=== PATIENT | female | born 1935 | race Caucasian/White ===

== ENCOUNTER 2016-09-02 07:04 | Day surgery (SDC) | payer MEDICARE, OTHER ==
[~2016-09-02 07:04] MED LIST: ACETAMINOPHEN 325 MG TABLET PO PRN; ACETYLCHOLINE CHLORIDE 20 DROP KIT IO PRN; BUPIVACAINE HCL/PF 30 ML VIAL IJ PRN; CYCLOPENTOLATE HCL 20 DROP BTL RIGHTEYE PRN; DEXTROSE 5%-0.5 NORMAL SALINE 1,000 ML IV PRN; EPINEPHrine 1 MG/ML AMPUL IO PRN; HYALURONATE SODIUM 0.4 ML DISP.SYRIN IO PRN; HYALURONATE SODIUM 0.85 ML DISP.SYRIN IO PRN; LIDOCAINE HCL/PF 200 MG/5 ML AMPUL TP PRN; LIDOCAINE HCL/PF 5 ML VIAL IO PRN; NORMAL SALINE 3 ML BOX IV PRN; TETRACAINE HCL 150 DROP BTL OP PRN
[2016-09-02] MEDS: PHENYLEPHRINE HCL 50 DROP BTL RIGHTEYE PRN ×3 (07:20→07:45)
[2016-09-02] MEDS: TROPICAMIDE 150 DROP BTL RIGHTEYE PRN ×3 (07:20→07:45)
[2016-09-02] MEDS ORDERED: DEXTROSE 5%-0.5 NORMAL SALINE 1,000 ML IV ONE (07:45)
[2016-09-02 10:09] VITALS: BP 147/70
== END 2016-09-02 07:05 | disposition home or self-care (01) ==
LOC: AMB 07:04
PROVIDERS: ATTEND Ophthalmology
PROC: 08RJ3JZ Replacement of Right Lens with Synthetic Substitute, Percutaneous Approach (ICD-10-PCS; principal; 2016-09-02 08:00)
DX: H26.9 Unspecified cataract (principal); I10 Essential (primary) hypertension; F03.90 Unspecified dementia, unspecified severity, without behavioral disturbance, psychotic disturbance, mood disturbance, and anxiety; G20 Parkinson's disease; D50.8 Other iron deficiency anemias; Z68.24 Body mass index [BMI] 24.0-24.9, adult; Z87.891 Personal history of nicotine dependence

== ENCOUNTER 2016-09-16 10:37 | Day surgery (SDC) | payer MEDICARE, OTHER ==
[~2016-09-16 10:37] MED LIST changes: +CYCLOPENTOLATE HCL 20 DROP BTL LEFTEYE PRN; -CYCLOPENTOLATE HCL 20 DROP BTL RIGHTEYE PRN
[2016-09-16] MEDS: PHENYLEPHRINE HCL 50 DROP BTL LEFTEYE PRN ×3 (10:50→11:10)
[2016-09-16] MEDS: TROPICAMIDE 150 DROP BTL LEFTEYE PRN ×3 (10:50→11:10)
[2016-09-16] MEDS ORDERED: DEXTROSE 5%-0.5 NORMAL SALINE 1,000 ML IV ONE (11:10)
[2016-09-16 13:03] VITALS: BP 127/61
== END 2016-09-16 10:38 | disposition home or self-care (01) ==
LOC: AMB 10:37
PROVIDERS: ATTEND Ophthalmology
PROC: 08RK3JZ Replacement of Left Lens with Synthetic Substitute, Percutaneous Approach (ICD-10-PCS; principal; 2016-09-16 11:20)
DX: H26.9 Unspecified cataract (principal); I10 Essential (primary) hypertension; D50.9 Iron deficiency anemia, unspecified; G20 Parkinson's disease; F02.80 Dementia in other diseases classified elsewhere, unspecified severity, without behavioral disturbance, psychotic disturbance, mood disturbance, and anxiety; Z87.891 Personal history of nicotine dependence; Z68.24 Body mass index [BMI] 24.0-24.9, adult

== ENCOUNTER 2018-03-07 08:55 | Inpatient (IN) ==
--- NOTE | 2018-03-07 09:11 | ERNOTE ---
Lower Extremity HPI - Narrative Date of Service: 03/07/18 - General Lower Extremities Pain: hip: right Time Seen by Provider: 03/07/18 08:55 Source: patient, EMS Exam Limitations: no limitations - Immun/Allergies/Home Medications Immunizations: IMMUNIZATION HX Immunizations Up to Date Yes History of Influenza Vaccine Yes Hx Pneumococcal Vaccination Yes Allergies/Adverse Reactions: Allergies Allergy/AdvReac Type Severity Reaction Status Date / Time No Known Allergies Allergy Verified 09/16/16 10:54 Home Medications: HOME MEDICATIONS Carbidopa/Levodopa 25/100 [Sinemet 25/100] 1 tab PO TID 01/24/15 [Last Taken 04/10] Clopidogrel Bisulfate [Plavix] 75 mg PO DAILY 01/24/15 [Last Taken 09/01/16] Levothyroxine Sodium [Synthroid] 100 mcg PO DAILY 01/24/15 [Last Taken 09/01/16] Ranolazine [Ranexa] 500 mg PO BID 01/24/15 [Last Taken 09/01/16] Atenolol [Tenormin] 25 mg PO DAILY 01/25/15 [Last Taken 09/01/16] Cyanocobalamin [Vitamin B-12] 1,000 mcg PO DAILY 01/25/15 [Last Taken 09/01/16] Ferrous Sulfate 325 mg PO TID #90 tablet 01/25/15 [Last Taken 09/01/16] Aspirin [Aspirin Enteric Coated] 81 mg PO DAILY 08/28/16 [Last Taken 09/01/16] Calcium Carbonate/Vitamin D3 [Calcium 600 + Vit D 200 Tablet] 1 each PO DAILY [Last Taken 09/01/16] Cholecalciferol [Vitamin D] 1,000 unit PO DAILY 08/28/16 [Last Taken 09/01/16] Haloperidol [Haldol] 1 mg PO DAILY 08/28/16 [Last Taken 09/01/16] Lisinopril [Zestril] 10 mg PO DAILY 08/28/16 [Last Taken 09/02/16 07:00] Simvastatin [Zocor] 20 mg PO HS 08/28/16 [Last Taken 09/01/16] Acetaminophen 650 mg PO Q6H PRN 03/07/18 [Last Taken Unknown] Meclizine HCl [Antivert] 25 mg PO QID PRN 03/07/18 [Last Taken Unknown] metFORMIN HCL [Metformin HCl] 500 mg PO BIDWM 03/07/18 [Last Taken Unknown] - History of Present Illness Narrative: This patient is an 82-year-old female who is from one of the local nursing homes. She got up to rearrange sheets or blankets and fell backwards, landing on her back. She has right hip pain. She was noted to have rotation and shortening. She denies any other injuries. She denies hitting her head. Date (Duration): 03/07/18 Time (Timing): 08:30 Occurred: just prior to arrival Location of Incident: home Method of Injury: Reports: fell Reason for Fall: Reports: lost balance Loss of Consciousness: Reports: no loss of consciousness Modifying Factors - (Improves): Reports: rest Associated Symptoms: Denies: dizzy/light headedness Other Injuries: Reports: none Subsequent Symptoms: Denies: sensory loss, numbness, motor loss Prior Treament: Denies: other Additional Comments: Her pain is better at this time and she does not want anything for pain. Review of Systems - Review of Systems Constitutional: Present: no symptoms reported EYE: Present: no symptoms reported ENT: Present: no symptoms reported Respiratory: Present: no symptoms reported. Absent: shortness of breath, cough Cardiology: Present: no symptoms reported. Absent: chest pain, syncope Gastrointestinal/Abdominal: Present: no symptoms reported, other - she has frequent bowel movements per the person in the room with her Genitourinary: Present: no symptoms reported Musculoskeletal: Present: See HPI. Absent: back pain, neck pain Skin: Present: no symptoms reported Neurological: Present: tremors - chronic tremor from Parkinson's disease. Absent: headache, dizziness/light-headedness, seizure, numbness, tingling Endocrine: Present: other - she has diabetes and is on oral medication. She took her medication this morning. Hematologic/Lymphatic: Present: no symptoms reported Psych: Present: no symptoms reported All Other Systems: All systems neg except as marked Medical History (Last Reviewed 03/07/18 @ 09:09 by Andriy Tellez MD) Anemia Arthropathy Dementia Diabetes mellitus type 2 in nonobese HTN (hypertension) Hyperlipidemia Hypothyroidism Parkinson disease Social History: Preferred Language Yemeni Do you have any methodist or No cultural preference? Smoking Status Former smoker Abuse History No History of abuse Psych History No pertinent hx Alcohol Use none Drug Use none Currently lives in a retirement Physical Exam - Physical Exam General Appearance: Present: wd/wn, alert, no apparent distress Head Exam: Present: normal inspection, no evidence of injury, no tenderness w palpation Eye Exam: Normal inspection: bilateral Ears, Nose, Throat: Present: normal ENT inspection Neck: Present: normal inspection, nontender, supple Respiratory: Present: no respiratory distress, normal breath sounds, chest nontender, lungs clear Cardiovascular/Chest: Present: regular rate, rhythm, no murmur Gastrointestinal/Abdominal: Present: normal bowel sounds, nontender, nondistended, soft, no organomegaly Extremity Exam: Present: other - the right leg is shortened and externally rotated. She has tenderness about the right hip. Neurological Exam: Present: alert, oriented, normal mood/affect, no motor/ sensory deficits Skin Exam: Present: normal color, warm/dry Lymphatic Exam: Present: no adenopathy ED Progress - Results and Orders Patient's Lab Results:: I have reviewed the patient's lab results. - Vital Signs Patient's Vital Signs:: I have reviewed the patient's vital signs. Vital Signs: Vital Signs 03/07/18 08:56 03/07/18 09:05 Temperature 36.3 C 36.3 C Pulse Rate 85 85 Respiratory Rate 18 18 Blood Pressure 185/89 H 185/89 H O2 Sat by Pulse Oximetry 100 100 - X-Ray X-Ray #1 X-Ray: hip - right femoral neck fracture Interpretation: Interp. by me X-Ray #2 X-Ray: chest - no acute process Interpretation: Interp. by me - Progress/Reassessment Chief Complaint: Hip Pain/Injury Plan - Plan Plan: I spoke with the orthopedist on-call. He came to the emergency department to evaluate the patient. I spoke with Dr. Gan. He is in the hospital and will see the patient when she is on the floor. Departure Clinical Impression: Fracture of right hip Qualifiers: Encounter type: initial encounter Fracture type: closed Qualified Code(s): S72.001A - Fracture of unspecified part of neck of right femur, initial encounter for closed fracture - Departure Disposition: Still a patient Condition: Stable Referrals: Aj Vann DO [Primary Care Provider] -
[2018-03-07 09:31] LABS: Hematocrit 40.4 % (37.0-47.0); Hemoglobin 13.1 gm/dL (12.5-16.0); Mean Cell Volume 93.5 fl (78-100); Mean Corpuscular Hemoglobin 30.3 pg (27-31); Mean Corpuscular Hgb Conc 32.4 g/dl (32-36); Mean Platelet Volume 10.4 fl (8-12.5); Neutrophil # 5.9 K/mm3 (1.3-6.0); Neutrophil % 72.2 % (42-75.0); Platelet Count 259 K/mm3 (150-450); Red Blood Count 4.32 M/mm3 (4.2-5.4); Red Cell Distribution Width 12.7 % (11.5-14.0); White Blood Count 8.2 K/mm3 (4.0-10.5)
[2018-03-07 09:43] LABS: Albumin * 3.5 gm/dl (3.4-5.0); Anion Gap 14.4 mmol/L (6.8-13.8); BUN/Creatinine Ratio 16.7 (9.0-21.6); Bilirubin, Total 0.3 mg/dL (0.0-1.1); Ca. Corrected For Albumin 9.2 mg/dL (8.4-10.2); Calcium * 9.1 mg/dL (7.9-10.9); Potassium 4.4 mmol/L (3.4-4.6); Total Protein 6.9 gm/dL (6.2-8.2)
--- NOTE | 2018-03-07 10:17 | CONS ---
HPI - General Date of Service: 03/07/18 Narrative: Mrs. Bronson was seen in the emergency department for concern of right subcapital hip fracture. Patient is a halfway patient fell today presenting emergency department was evaluated by emergency department staff found to have a displaced right subcapital hip fracture. Patient reports no other complaints besides right inguinal pain. In overall states she's been feeling good health prior to this fall. She's been admitted by medical for evaluation and for clearance for pending surgery. - History of Present Illness Allergies/Adverse Reactions: Allergies No Known Allergies Allergy (Verified 09/16/16 10:54) Home Medications: Home Medications Medication Instructions Recorded Last Taken Carbidopa/Levodopa 25/100 [Sinemet 1 tab PO TID 01/24/15 09/01/16 25/100] Clopidogrel Bisulfate [Plavix] 75 mg PO DAILY 01/24/15 09/01/16 Levothyroxine Sodium [Synthroid] 100 mcg PO DAILY 01/24/15 09/01/16 Ranolazine [Ranexa] 500 mg PO BID 01/24/15 09/01/16 Atenolol [Tenormin] 25 mg PO DAILY 01/25/15 09/01/16 Cyanocobalamin [Vitamin B-12] 1,000 mcg PO DAILY 01/25/15 09/01/16 Ferrous Sulfate 325 mg PO TID #90 tablet 01/25/15 09/01/16 Aspirin [Aspirin Enteric Coated] 81 mg PO DAILY 08/28/16 09/01/16 Calcium Carbonate/Vitamin D3 1 each PO DAILY 08/28/16 09/01/16 [Calcium 600 + Vit D 200 Tablet] Cholecalciferol [Vitamin D] 1,000 unit PO DAILY 08/28/16 09/01/16 Haloperidol [Haldol] 1 mg PO DAILY 08/28/16 09/01/16 Lisinopril [Zestril] 10 mg PO DAILY 08/28/16 09/02/16 07:00 Simvastatin [Zocor] 20 mg PO HS 08/28/16 09/01/16 Acetaminophen 650 mg PO Q6H PRN 03/07/18 Unknown Meclizine HCl [Antivert] 25 mg PO QID PRN 03/07/18 Unknown metFORMIN HCL [Metformin HCl] 500 mg PO BIDWM 03/07/18 Unknown Procedures Replacement of Left Lens with Synthetic Substitute, Percutaneous Approach (09/16) Replacement of Right Lens with Synthetic Substitute, Percutaneous Approach (05/11) Physical Examination - Exam Narrative: Mrs. Bronson is currently lying on gurney and accompanied by family. She is alert and oriented. Examination of right lower extremity reveals is externally rotated and shortened. She is local a little pain with palpation. She reports no thigh pain knee pain or right lower extremity pain. She is able to actively plantarflex and dorsiflex both ankles. She reports no pain in the left lower extremity or thigh. She has 1+ dorsalis pedis pulse lower extremity is. X- rays reviewed showed displaced subcapital hip fracture. Vital Signs: Vital Signs - Last Taken Temp 36.3 C 03/07/18 09:05 Pulse 85 03/07/18 09:05 Resp 18 03/07/18 09:05 BP 185/89 H 03/07/18 09:05 Pulse Ox 100 03/07/18 09:05 O2 Oxygen Delivery Method Room Air - Results and Findings: Lab/Microbiology results last 24 hrs: Abnormal/Pending Laboratory Last 24 HRS 03/07/18 03/07/18 09:25 09:25 Immature Gran % (Auto) 0.90 H Immature Gran # (Auto) 0.07 H Lymphocytes % 19.4 L Plasma Sodium 144 H Anion Gap 14.4 H Est GFR (Non-Af Amer) 52 L Random Glucose 195 H ALT 12 L - Assessments/Findings (1) Fracture of right hip Diagnosis(s): Discussed with Ms. Bronson and her family her condition. Discussed the need for hemiarthroplasty. Risks of infection, neurovascular injury, leg length discrepancy, hardware complications, DVT, PE, stroke, MA and were discussed. We'll obtain consents. Pending medical evaluation and clearance plan to proceed with this in the a.m. March 08. She will have Ancef IV preop. We'll obtain labs EKG chest x-ray and UA at this time. Problem: Acute (2) Hypertension Problem: Chronic (3) Diabetes 1.5, managed as type 2 Problem: Chronic (4) Parkinson disease Problem: Chronic
[2018-03-07 10:29] LABS: Prothrombin Time (Patient) 9.9 Seconds (9.0-11.0)
[2018-03-07 10:33] LABS: INR 0.99 INR (0.90-1.10)
[2018-03-07] MEDS ORDERED: ONDANSETRON HCL/PF 2 MG/ML VIAL IV ONE (10:38)
[2018-03-07] MEDS ORDERED: MORPHINE SULFATE 4 MG/ML SYRG IV ONE (10:38)
[2018-03-07] MEDS ORDERED: ONDANSETRON HCL/PF 2 MG/ML VIAL ONE (10:39)
[2018-03-07] MEDS ORDERED: MORPHINE SULFATE 4 MG/ML SYRG ONE (10:39)
[2018-03-07 10:42] LABS: Urine Appearance Clear (CLEAR); Urine Bilirubin Negative (NEGATIVE); Urine Blood Negative /ul (NEGATIVE); Urine Color Yellow; Urine Ketone Negative (NEGATIVE)
[2018-03-07 10:43] LABS: Urine Bacteria None Seen; Urine Nitrite Negative (NEGATIVE); Urine Protein Negative (NEGATIVE); Urine RBC None Seen /hpf (0-5); Urine Urobilinogen Normal (NORMAL); Urine WBC None Seen /hpf (0-5)
[2018-03-07] MEDS ORDERED: ACETAMINOPHEN 325 MG TABLET PO PRN (12:50)
--- NOTE | 2018-03-07 13:27 | HP ---
Chief Complaint - Chief Complaint Date of Service: 03/07/18 Time of Service: 13:06 Chief Complaint: Right Hip pain after a fall. History of Present Illness: 82 yo WF, resident of the [facility], who ambulates independently, was by her bed adjusting her sheet so she could take a nap and then next thing she knew she had fallen backwards and had severe, sharp right hip pain. She denies LOC, CP, dizziness prior or after this, but does have hx of significant CAD and anemia in the past. She also has DM2, but is not on insulin and states she didn't feel weak like her sugars were low. In the ER she was found with a displaced right subcapital hip fracture and was in need of surgery. She received 4mg IV morphine in the ER to control her pain around 1039 this am and states her pain is still well controlled. She has no other complaints. Her daughter is with her and adds to the hx, but patient it a reasonably good historian. Pertinant issues: 1. 2 vessel CAD with 80% blockage, but cannot be stented so is on plavix and ASA and Ranexa for this, is a bleeding risk from surgery and meds which could effect her heart if too dramatic of a drop in Hb. 2. Parkinson - cause bad EKG production so will need to repeat this. 3. DM2 - will need to watch and control sugars 4. HTN - BP's initially high, most likely due to pain, BP's better now 5. Anemia - appears stable. will check iron levels to be sure also not too high. Pt. will be admitted for pain control and unless concerns on EKG should be able to go to surgery in the am. Medical History (Last Reviewed 03/07/18 @ 15:00 by Eric Angulo CRNA) Anemia Arthropathy Dementia Diabetes mellitus type 2 in nonobese HTN (hypertension) Hyperlipidemia Hypothyroidism Parkinson disease Social History: Patient Lives/Resources [facility] Utilized Occupation Retired Preferred Language Romansh Do you have any restorationism or Yes: Adventism cultural preference? Smoking Status Former smoker Have you smoked in the past 12 No months Do you dip or chew tobacco No Abuse History No History of abuse Psych History No pertinent hx Alcohol Use none Drug Use none Review Of Systems (GEN) - Review of Systems Generalized/Overall Review: Present: No Symptoms Reported EENTM: Present: No Symptoms Reported Respiratory: Present: No Symptoms Reported Cardiac: Present: Chest Pain - always at rest and lying down, never with activity. Abdominal: Present: No Symptoms Reported Genitourinary: Present: No Symptoms Reported Musculoskeletal: Present: Joint Pain Neurological: Present: Tremors Skin: Present: No Symptoms Reported Endocrine: Present: No Symptoms Reported Immunizations: IMMUNIZATION HX Immunizations Up to Date Yes History of Influenza Vaccine Yes Hx Pneumococcal Vaccination Yes Allergies/Adverse Reactions: Allergies Allergy/AdvReac Type Severity Reaction Status Date / Time No Known Allergies Allergy Verified 09/16/16 10:54 Home Medications: HOME MEDICATIONS Carbidopa/Levodopa 25/100 [Sinemet 25/100] 1 tab PO TID 01/24/15 [Last Taken 04/10] Clopidogrel Bisulfate [Plavix] 75 mg PO DAILY 01/24/15 [Last Taken 09/01/16] Levothyroxine Sodium [Synthroid] 100 mcg PO DAILY 01/24/15 [Last Taken 09/01/16] Ranolazine [Ranexa] 500 mg PO BID 01/24/15 [Last Taken 09/01/16] Atenolol [Tenormin] 25 mg PO DAILY 01/25/15 [Last Taken 09/01/16] Cyanocobalamin [Vitamin B-12] 1,000 mcg PO DAILY 01/25/15 [Last Taken 09/01/16] Ferrous Sulfate 325 mg PO TID #90 tablet 01/25/15 [Last Taken 09/01/16] Aspirin [Aspirin Enteric Coated] 81 mg PO DAILY 08/28/16 [Last Taken 09/01/16] Calcium Carbonate/Vitamin D3 [Calcium 600 + Vit D 200 Tablet] 1 each PO DAILY [Last Taken 09/01/16] Cholecalciferol [Vitamin D] 1,000 unit PO DAILY 08/28/16 [Last Taken 09/01/16] Haloperidol [Haldol] 1 mg PO DAILY 08/28/16 [Last Taken 09/01/16] Lisinopril [Zestril] 10 mg PO DAILY 08/28/16 [Last Taken 09/02/16 07:00] Simvastatin [Zocor] 20 mg PO HS 08/28/16 [Last Taken 09/01/16] Acetaminophen 650 mg PO Q6H PRN 03/07/18 [Last Taken Unknown] Meclizine HCl [Antivert] 25 mg PO QID PRN 03/07/18 [Last Taken Unknown] metFORMIN HCL [Metformin HCl] 500 mg PO BIDWM 03/07/18 [Last Taken Unknown] Exam - Exam Vital Signs: Vital Signs - Last Taken Temp 37.0 C 03/07/18 12:05 Pulse 77 03/07/18 12:05 Resp 18 03/07/18 12:05 BP 137/61 03/07/18 12:05 Pulse Ox 92 L 03/07/18 12:05 Constitutional: Present: Alert, Oriented x3, Cooperative, Well developed, Mild distress, Looks Younger than stated age ENT Exam: Present: hearing grossly normal Eye Exam: bilateral eye: normal inspection, PERRL, EOMI Neck: Present: supple Respiratory: Present: lungs clear, normal breath sounds, no respiratory distress , no accessory muscle use Cardiovascular/Chest: Present: regular rate, rhythm, no murmur Peripheral Pulses: dorsalis-pedis (R): 2+, dorsalis-pedis (L): 2+ Abdomen: Present: Normal bowel sounds, soft, nondistended, no rebound tenderness , no hepatospenomegaly, tender - PAT region Extremity: Present: no calf tenderness, leg pain - tender over right hip with mild palpation, other - significant RUE tremors, especially when she gets excited. Skin Exam: Present: normal color Neurologic: Present: normal mood/affect, oriented x 3 Appearance: Present: appropriate appearance, appropriate insight, neat, no memory impairment Eye contact: Present: cooperative, good eye contact, normal speech Thoughts: Present: normal thought pattern, no apparent hallucination Diagnostic Studies: Abnormal Lab Results 03/07/18 03/07/18 Range/Units 09:25 09:25 Immature Gran % (Auto) 0.90 H (0.001-0.429) % Immature Gran # (Auto) 0.07 H (0.000-0.0310) K/mm3 Lymphocytes % 19.4 L (20-51) % Plasma Sodium 144 H (130-142) mmol/L Anion Gap 14.4 H (6.8-13.8) mmol/L Est GFR (Non-Af Amer) 52 L (60-130) mL/min Random Glucose 195 H (70-110) mg/dL ALT 12 L (19-67) U/L Laboratory Results WBC 8.2 K/mm3 (4.0-10.5) 03/07/18 09:25 RBC 4.32 M/mm3 (4.2-5.4) 03/07/18 09:25 Hgb 13.1 gm/dL (12.5-16.0) 03/07/18 09:25 Hct 40.4 % (37.0-47.0) 03/07/18 09:25 MCV 93.5 fl (78-100) 03/07/18 09:25 MCH 30.3 pg (27-31) 03/07/18 09:25 MCHC 32.4 g/dl (32-36) 03/07/18 09:25 RDW 12.7 % (11.5-14.0) 03/07/18 09:25 Plt Count 259 K/mm3 (150-450) 03/07/18 09:25 MPV 10.4 fl (8-12.5) 03/07/18 09:25 Immature Gran % (Auto) 0.90 % (0.001-0.429) H 03/07/18 09:25 Immature Gran # (Auto) 0.07 K/mm3 (0.000-0.0310) H 03/07/18 09:25 Neutrophils % 72.2 % (42-75.0) 03/07/18 09:25 Lymphocytes % 19.4 % (20-51) L 03/07/18 09:25 Monocytes % 6.1 % (0.0-9) 03/07/18 09:25 Eosinophils % 1.0 % (0.0-3.0) 03/07/18 09:25 Basophils % 0.4 % (0.0-1.0) 03/07/18 09:25 Nucleated RBC % 0.0 k/mm3 (0-1) 03/07/18 09:25 Neutrophils # 5.9 K/mm3 (1.3-6.0) 03/07/18 09:25 Lymphocytes # 1.58 k/mm3 (1.5-3.5) 03/07/18 09:25 Monocytes # 0.5 k/mm3 (0.0-1.0) 03/07/18 09:25 Eosinophils # 0.1 k/mm3 (0.0-0.7) 03/07/18 09:25 Absolute Basophils 0.0 k/mm3 (0.0-0.1) 03/07/18 09:25 PT 9.9 Seconds (9.0-11.0) 03/07/18 09:25 INR (Anticoag Therapy) 0.99 INR (0.90-1.10) 03/07/18 09:25 Sodium 142 mmol/L (132-142) 03/07/18 09:25 Plasma Sodium 144 mmol/L (130-142) H 03/07/18 09:25 Potassium 4.4 mmol/L (3.4-4.6) 03/07/18 09:25 Chloride 103 mmol/L (97-106) 03/07/18 09:25 Carbon Dioxide 29.0 mmol/L (24-32.6) 03/07/18 09:25 Anion Gap 14.4 mmol/L (6.8-13.8) H 03/07/18 09:25 BUN 18 mg/dL (3-23) 03/07/18 09:25 Creatinine 1.08 mg/dL (0.4-1.4) 03/07/18 09:25 Est GFR (Non-Af Amer) 52 mL/min (60-130) L 03/07/18 09:25 BUN/Creatinine Ratio 16.7 (9.0-21.6) 03/07/18 09:25 Random Glucose 195 mg/dL (70-110) H 03/07/18 09:25 Calcium 9.1 mg/dL (7.9-10.9) 03/07/18 09:25 Calcium Adj for Albumin 9.2 mg/dL (8.4-10.2) 03/07/18 09:25 Total Bilirubin 0.3 mg/dL (0.0-1.1) 03/07/18 09:25 AST 15 U/L (0-48) 03/07/18 09:25 ALT 12 U/L (19-67) L 03/07/18 09:25 Alkaline Phosphatase 54 U/L (50-170) 03/07/18 09:25 Total Protein 6.9 gm/dL (6.2-8.2) 03/07/18 09:25 Albumin 3.5 gm/dl (3.4-5.0) 03/07/18 09:25 Urine Color Yellow 03/07/18 Unknown Urine Appearance Clear (CLEAR) 03/07/18 Unknown Urine pH 6.0 pH (5.0-7.0) 03/07/18 Unknown Ur Specific [place] 1.010 SP.GR. (1.005-1.010) 03/07/18 Unknown Urine Protein Negative mg/dL (NEGATIVE) 03/07/18 Unknown Urine Glucose (UA) Negative mg/dL (NEGATIVE) 03/07/18 Unknown Urine Ketones Negative mg/dL (NEGATIVE) 03/07/18 Unknown Urine Blood Negative /ul (NEGATIVE) 03/07/18 Unknown Urine Nitrate Negative (NEGATIVE) 03/07/18 Unknown Urine Bilirubin Negative mg/dl (NEGATIVE) 03/07/18 Unknown Urine Urobilinogen Normal EU/dl (NORMAL) 03/07/18 Unknown Ur Leukocyte Esterase Negative /ul (NEGATIVE) 03/07/18 Unknown Urine RBC None seen /hpf (0-5) 03/07/18 Unknown Urine WBC None seen /hpf (0-5) 03/07/18 Unknown Ur Epithelial Cells None seen /hpf (0-5) 03/07/18 Unknown Urine Bacteria None seen (NONE) 03/07/18 Unknown Urine Culture Comments No culture indicated 03/07/18 Unknown Assessment/Plan - Assessment/Plan (1) Fracture of right hip Assessment: need for surgery. moderate risk given hx, but feel she is medically optimized and stable for surgery. need to play close attention to BP's and Hb due to CAD. Problem: Acute Qualifiers: Encounter type: initial encounter Fracture type: closed Qualified Code(s) : S72.001A - Fracture of unspecified part of neck of right femur, initial encounter for closed fracture (2) Hypertension Assessment: stable, continue lisinopril Problem: Chronic Qualifiers: Hypertension type: essential hypertension Qualified Code(s): I10 - Essential (primary) hypertension (3) Diabetes 1.5, managed as type 2 Assessment: will hold metformin and do SSI and CC diet while here. Problem: Ruled-out (4) Parkinson disease Assessment: continue meds unchanged. Problem: Chronic (5) CAD (coronary artery disease) Assessment: does report some CP at times, but appears it may be more GI related than CAD. will consider prn SL nitro, but will do some pecid also for her stomach. EKG showed no actue changes that would disqualify her from surgery. Problem: Acute Qualifiers: Coronary Disease-Associated Artery/Lesion type: [place] artery Associated angina: with stable angina (6) Dementia Assessment: appears oriented to person and place, no concerns at this time, but will continue her usual meds. Problem: Chronic Qualifiers: Dementia type: Parkinson's disease (7) Discharge planning issues Assessment: possibly go be discharged back the [facility] in a few days, but will depend on how her blood loss, CAD, sugars go as she has multiple comorbidities that will need to be well controlled prior to discharge. Anticipate her stay being at lest 3-4 days. Problem: Acute
--- NOTE | 2018-03-07 15:01 | ANES ---
Anesthesia Pre Procedure Eval Vitals/Labs: Last Vital Signs Temp 36.4 C 03/07/18 14:46 Pulse 80 03/07/18 14:46 Resp 16 03/07/18 14:46 BP 127/46 03/07/18 14:46 Pulse Ox 96 03/07/18 14:46 HOME MEDICATIONS Carbidopa/Levodopa 25/100 [Sinemet 25/100] 1 tab PO TID 01/24/15 [Last Taken 04/10] Clopidogrel Bisulfate [Plavix] 75 mg PO DAILY 01/24/15 [Last Taken 09/01/16] Levothyroxine Sodium [Synthroid] 100 mcg PO DAILY 01/24/15 [Last Taken 09/01/16] Ranolazine [Ranexa] 500 mg PO BID 01/24/15 [Last Taken 09/01/16] Atenolol [Tenormin] 25 mg PO DAILY 01/25/15 [Last Taken 09/01/16] Cyanocobalamin [Vitamin B-12] 1,000 mcg PO DAILY 01/25/15 [Last Taken 09/01/16] Ferrous Sulfate 325 mg PO TID #90 tablet 01/25/15 [Last Taken 09/01/16] Aspirin [Aspirin Enteric Coated] 81 mg PO DAILY 08/28/16 [Last Taken 09/01/16] Calcium Carbonate/Vitamin D3 [Calcium 600 + Vit D 200 Tablet] 1 each PO DAILY [Last Taken 09/01/16] Cholecalciferol [Vitamin D] 1,000 unit PO DAILY 08/28/16 [Last Taken 09/01/16] Haloperidol [Haldol] 1 mg PO DAILY 08/28/16 [Last Taken 09/01/16] Lisinopril [Zestril] 10 mg PO DAILY 08/28/16 [Last Taken 09/02/16 07:00] Simvastatin [Zocor] 20 mg PO HS 08/28/16 [Last Taken 09/01/16] Acetaminophen 650 mg PO Q6H PRN 03/07/18 [Last Taken Unknown] Meclizine HCl [Antivert] 25 mg PO QID PRN 03/07/18 [Last Taken Unknown] metFORMIN HCL [Metformin HCl] 500 mg PO BIDWM 03/07/18 [Last Taken Unknown] Allergies/Adverse Reactions: Allergies Allergy/AdvReac Type Severity Reaction Status Date / Time No Known Allergies Allergy Verified 09/16/16 10:54 - Planned Procedure Planned Procedure: HIP FIX RIGHT Medication List Reviewed:: Yes Allergies Verified: Yes Medical History (Last Reviewed 03/07/18 @ 15:00 by Eric Angulo CRNA) Anemia Arthropathy Dementia Diabetes mellitus type 2 in nonobese HTN (hypertension) Hyperlipidemia Hypothyroidism Parkinson disease - Family Anesthesia History Family History:: no untoward family reactions to anesthesia - Airway/Neck/Teeth Denture Type: Full- Upper Mallampatti Score: 2 Thyromental (T-M) distance: > 6 cm Mandibulo Hyoid distance: > 3 cm - Respiratory Respiratory: lungs clear Smoking Status: Former smoker Sleep Apnea currently treated: No - Cardiovascular Patient History - Cardiac/Respiratory: Coronary Heart Disease Tolerates Activity: Poor Heart Sounds: S1 & S2, Regular - Anesthesia Assessment and Plan ASA Class: III Anesthesia Type Plan: General ET Planned difficult intubation/equipment available: No
[2018-03-07] MEDS: CARBIDOPA/LEVODOPA 25/100 1 TAB TABLET PO SCH ×2 (15:51→22:22)
[2018-03-07] MEDS: INSULIN LISPRO 100 UNITS/ML VIAL SC SCH ×2 (18:57→22:19)
[2018-03-07] MEDS: FAMOTIDINE 20 MG TABLET PO SCH (22:20)
[2018-03-08] MEDS: MORPHINE SULFATE 2 MG/ML DISP.SYRIN IV PRN (04:49)
[2018-03-08] MEDS: RINGER'S SOLUTION,LACTATED 1,000 ML IV PRN ×5 (05:00→22:03)
[2018-03-08] MEDS ORDERED: ceFAZolin SODIUM 1 GM VIAL IV PRN (06:00)
[2018-03-08] MEDS: INSULIN LISPRO 100 UNITS/ML VIAL SC SCH ×4 (08:10→21:07)
[2018-03-08] MEDS: LEVOTHYROXINE SODIUM 100 MCG TABLET PO SCH (08:11)
[2018-03-08] MEDS: FAMOTIDINE 20 MG TABLET PO SCH ×2 (08:11→21:04)
[2018-03-08] MEDS: HALOPERIDOL 1 MG TABLET PO SCH (08:11)
[2018-03-08] MEDS: CARBIDOPA/LEVODOPA 25/100 1 TAB TABLET PO SCH ×3 (08:11→21:04)
[2018-03-08] MEDS: LISINOPRIL 10 MG TABLET PO SCH (08:12)
[2018-03-08] MEDS: ATENOLOL 25 MG TABLET PO SCH (08:12)
[2018-03-08] MEDS ORDERED: ONDANSETRON HCL/PF 2 MG/ML VIAL IV PRN (09:45)
[2018-03-08] MEDS ORDERED: PROMETHAZINE HCL 5 MG in DEXTROSE 5 % IN WATER 50 ML IV PRN ×2 (09:45)
[2018-03-08] MEDS ORDERED: MORPHINE SULFATE 2 MG/ML DISP.SYRIN IV PRN (09:45)
[2018-03-08] MEDS ORDERED: ACETAMINOPHEN 500 MG TABLET PO PRN (09:45)
[2018-03-08] MEDS ORDERED: MAG HYDROX/ALUMINUM HYD/SIMETH 30 ML UDC PO PRN (09:45)
[2018-03-08] MEDS ORDERED: MAGNESIUM HYDROXIDE 30 ML UDC PO PRN (09:45)
--- NOTE | 2018-03-08 09:56 | OR ---
Operative Report - Dictated Report Narrative: Date: 03/08/2018 Preoperative diagnosis: Closed right hip displaced femoral neck fracture. Postoperative diagnosis: Closed right hip displaced femoral neck fracture Procedure: Right hip cemented gabino-arthroplasty. Surgeon: Rito Burnham M.D. Medical Grade Shoemaker: Jag Maurer PA-C Anesthesia: Gen. Complications: None Specimens: Bone for disposal. Estimated blood loss: 200 milliliters. Retained implants: Depuy [place] size 4 basic cemented femoral stem. Size 48 millimeter ouside diameter self-centering bipolar head with + and 1.5 millimeter cobalt chromium 28 mm femoral head. Indications: Roxie is a 82-year-old female who lives in a senior care and ambulates with a roller walker and fell from standing height in her senior care with immediate right hip pain and inability to bear weight. This patient was evaluated on the floor and found to have sustained a displaced femoral neck fracture. The risks and benefits were discussed with the patient as well as any power of mergers and acquisitions attorney. Patient wished to proceed with surgical treatment. The risks, benefits, and alternatives discussed were , blood clots, bleeding, infection, nerve/tendon blood vessel/ injury, malposition of components, dislocation and/or instability of joint, intraoperative fracture, postoperative limited range of motion, persistent pain, failure of components, and need for additional procedures. Patient wished to proceed. Consent was obtained after answering all questions. Procedure: After marking the correct extremity on the floor, the patient was taken to the operating room. A timeout was performed. IV antibiotics consisting of 1 g of Ancef were administered prior to the procedure. General anesthetic was induced by anesthesia without complication. A Wilson catheter was already in place. The patient was then transitioned to a lateral position on a well-padded pegboard. And an axillary roll was placed. The head was in neutral position. The non-operative down leg was well-padded with SCD and PADMINI hose in place. The arms were supported and padded to protect from any undue pressure on the bony prominences and nerves. Well-padded anterior and posterior pelvic and chest posts were secured in order to maintain a stable position of the pelvis. This was placed so that the pelvis was perpendicular to the floor. The body was in line with the pelvis. Once it was felt that we had protected all the bony prominences and the patient was well secured with a safety belt as well, the leg was pre-scrubbed with alcohol, prepped and draped in a standard sterile fashion. A standard anterior lateral hip incision was marked out over the greater trochanter. Ioban drapes were then placed. The skin incision was then made. Sharp dissection with a scalpel utilizing cautery for hemostasis was carried out down to the gluteus and iliotibial band fascia. This was split in line with the skin incision. The greater trochanter bursa was excised. The anterior and posterior margins of the abductor tendon were identified. The anterior 1/3 of the tendon was tagged and reflected off the greater trochanter leaving a sleeve of tendon for repair at the completion of the case. This exposed the underlying hip joint capsule. An inverted T-type capsulotomy was made extending this up to the brim of the acetabulum. We encountered a hematoma at this point confirming an acute fracture as well as noted displacement of the femoral neck fracture. Using Jeffrey retractors to assist with elevation of the soft tissues off the anterior, superior, and inferior aspects of the femoral neck, the hip was then placed in a figure 4 position and the femoral neck cleanup cut was then made. With the leg in an externally rotated and adducted position, the cutting flag was utilized in order to russell for a standard femoral neck cut approximately a fingerbreadth above the level of the lesser trochanter. This was done while protecting the surrounding soft tissues with Jeffrey retractors. The femoral head was then removed and sized for guidance on the size of the bipolar head. It was noted that there was some mild loss of articular cartilage on both the femoral head and weightbearing portions of the acetabulum. We then returned the leg to the table and turned our attention to the acetabulum. While protecting the surrounding soft tissues, the labrum and remaining tissue in the fovea were excised using a scalpel and cautery. This was then protected with a sponge while we returned our attention to the femur. With the leg in a figure 4 position utilizing Jeffrey retractors for soft tissue protection, a box cutting osteotome, followed by Ramila awshay, followed by serial broaches were utilized in order to prepare the femur. It was found that a size 4 broach gave good axial and rotational stability. The proximal femur was visualized to ensure that there were no signs of fracture. A series of heads were trialed. It was found that a 48 mm + 1.5 mm femoral head gave good overall stability. There is minimal longitudinal instability. With the leg in the position of sleep the femoral head was well covered. Hip range of motion was able to reach full extension and external rotation to greater than 75 degrees prior to impingement along the posterior acetabulum. The hip was able to be flexed to greater than 90 degrees with internal rotation greater than 60 degrees prior to anterior impingement. The limb lengths were near equal based on comparison to the contralateral side. At this point was felt this was the appropriately sized femoral components as well as neck and femoral head. The trial implants were removed. A canal cement plug was placed distally and the canal was thoroughly irrigated using pulsatile vacuum brush device. The canal was then thoroughly dried with a suction device and canal sponge. Cement was vacuum mixed per the felt coverer' s instructions and placed into a cement gun. Cement was then placed in a dry irrigated femur and a moderate cementing technique using a pressurizing device. The stem was then placed in the appropriate version compared to her big sandy anatomy and held in place while the cement cured and the extruded cement was removed. Once the cement was fully cured we ensured that the stem was stable and that there were no signs of fracture. The extruded cement was removed, and the joint and the capsule were thoroughly evaluated to ensure there are no cement fragments. Once was felt that we adequately removed the extra cement and that the joint was prepared for final implants, the final femoral bipolar head was then impacted in the place. The hip was then reduced and seated completely. The capsule was repaired with interrupted #1 Vicryl. The abductor tendon was repaired utilizing #5 Ethibond. This was oversewn with #1 Vicryl. The fascia was closed with interrupted #1 Vicryl. The wounds were thoroughly irrigated as we closed in layers. The deep fat layers were closed with 0 Vicryl and the dermis was approximated with interrupted 3-0 Vicryl. The skin was closed with a running subcuticular 4-0 monocryl and a Prineo mesh dressing. All sponge, needle, blade, and instrument counts were correct prior to closing the wounds. Sterile dressings consisting of Xeroform, 4 x 4's, ABD, and tape were applied. The patient was awoken and transferred to her hospital bed and then to the postanesthesia care unit in stable condition. Postoperative condition: The plan is to return to the medical/surgical inpatient floor postoperatively. Postoperatively 24 hours of IV antibiotics, pain control, physical therapy, occupational therapy, and medical comanagement will be utilized. Patient will be weightbearing as tolerated with anterior hip precautions. Postoperative films will be obtained in the recovery room.
--- NOTE | 2018-03-08 10:31 | ANES ---
Post Anesthesia Discharge - Transfer of Care Transfer of Care handoff given to nurse: Yes - Discharge from PACU Discharge from PACU when meets criteria: Yes
--- NOTE | 2018-03-08 13:00 | PN ---
Subjective - Date and Time Seen Date: 03/08/18 Time: 12:56 Subjective Narrative: Patient back from surgery, reports pain in hip. Otherwise no complaints. No fever, chills, nausea, or vomiting. She denies abdominal pain, but later reports tenderness to abdominal palpation. Objective - Vitals Vitals: Last Vital Signs Temp 36.7 C 03/08/18 11:00 Pulse 88 03/08/18 11:00 Resp 20 03/08/18 11:00 BP 152/87 H 03/08/18 11:00 Pulse Ox 98 03/08/18 11:00 - Exam Constitutional: Present: Alert - oriented to person Respiratory: Present: lungs clear, normal breath sounds Cardiovascular/Chest: Present: regular rate, rhythm, no murmur Abdomen: Present: soft, nondistended, tender - diffuse Skin Exam: Present: normal color, warm/dry, no cyanosis Assessment/Plan Plan Narrative: Roxie returns after surgery. No medical concerns at this time. Will plan to recheck Hemoglobin tomorrow morning. - Problems/Diagnosis (1) Fracture of right hip Problem: Acute Qualifiers: Encounter type: initial encounter Fracture type: closed Qualified Code(s) : S72.001A - Fracture of unspecified part of neck of right femur, initial encounter for closed fracture (2) Parkinson disease Problem: Chronic
[2018-03-08] MEDS: HYDROcodone/ACETAMINOPHEN 1 EACH TABLET PO PRN ×2 (14:35→21:10)
[2018-03-08] MEDS: ceFAZolin SODIUM 1 GM in DEXTROSE 5 % IN WATER 100 ML IV SCH ×4 (14:36→22:02)
[2018-03-08] MEDS: SENNOSIDES/DOCUSATE SODIUM 1 TAB TABLET PO SCH (21:04)
[2018-03-09] MEDS: MORPHINE SULFATE 2 MG/ML DISP.SYRIN IV PRN ×2 (02:27→08:13)
[2018-03-09] MEDS: HYDROcodone/ACETAMINOPHEN 1 EACH TABLET PO PRN ×3 (04:22→18:23)
[2018-03-09 05:20] LABS: Hematocrit 31.5 % (37.0-47.0); Hemoglobin 10.3 gm/dL (12.5-16.0); Mean Cell Volume 92.1 fl (78-100); Mean Corpuscular Hemoglobin 30.1 pg (27-31); Mean Corpuscular Hgb Conc 32.7 g/dl (32-36); Mean Platelet Volume 10.7 fl (8-12.5); Platelet Count 177 K/mm3 (150-450); Red Blood Count 3.42 M/mm3 (4.2-5.4); White Blood Count 10.2 K/mm3 (4.0-10.5)
[2018-03-09 05:34] LABS: Anion Gap 9.4 mmol/L (6.8-13.8); BUN/Creatinine Ratio 10.6 (9.0-21.6); Calcium * 8.5 mg/dL (7.9-10.9); Carbon Dioxide 28.8 mmol/L (24-32.6); Estimated Creat Clear 42.2; Potassium 4.2 mmol/L (3.4-4.6)
[2018-03-09] MEDS: INSULIN LISPRO 100 UNITS/ML VIAL SC SCH ×4 (06:44→21:37)
[2018-03-09] MEDS: ceFAZolin SODIUM 1 GM in DEXTROSE 5 % IN WATER 100 ML IV SCH ×2 (07:04)
[2018-03-09] MEDS: LEVOTHYROXINE SODIUM 100 MCG TABLET PO SCH (07:05)
[2018-03-09] MEDS: CARBIDOPA/LEVODOPA 25/100 1 TAB TABLET PO SCH ×3 (07:05→21:36)
--- NOTE | 2018-03-09 07:43 | ANES ---
Post Anesthesia Assessment - Vital Signs Vitals: Last Vital Signs Temp 37.3 C 03/09/18 06:36 Pulse 118 H 03/09/18 06:36 Resp 22 H 03/09/18 06:36 BP 143/67 03/09/18 06:36 Pulse Ox 92 L 03/09/18 06:36 Airway Patency: Normal - Mental Status Level Of Consciousness: Drowsy - Pain Level Pain Score: 5 - N/V Assessment Nausea/Vomiting Presence: None Dehydration:: No
[2018-03-09] MEDS: FAMOTIDINE 20 MG TABLET PO SCH ×2 (08:07→21:32)
[2018-03-09] MEDS: LISINOPRIL 10 MG TABLET PO SCH (08:07)
[2018-03-09] MEDS: HALOPERIDOL 1 MG TABLET PO SCH (08:07)
[2018-03-09] MEDS: ENOXAPARIN SODIUM 30 MG/0.3 ML SYRG SC SCH (08:07)
[2018-03-09] MEDS: ATENOLOL 25 MG TABLET PO SCH (08:07)
--- NOTE | 2018-03-09 09:10 | PN ---
Subjective - Date and Time Seen Date: 03/09/18 Time: 08:25 Subjective Narrative: Patient reports no acute events, she is difficult to understand her thought process. She is able to follow commands, and answer simple questions. Objective - Vitals Vitals: Last Vital Signs Temp 37.3 C 03/09/18 06:36 Pulse 110 H 03/09/18 08:07 Resp 22 H 03/09/18 06:36 BP 143/67 03/09/18 08:07 Pulse Ox 92 L 03/09/18 06:36 - Abnormal Lab Findings Abnormal Lab Findings: Abnormal Lab Results 03/09/18 03/09/18 Range/Units 05:00 05:00 RBC 3.42 L (4.2-5.4) M/mm3 Hgb 10.3 L (12.5-16.0) gm/dL Hct 31.5 L (37.0-47.0) % Random Glucose 175 H (70-110) mg/dL - Exam Constitutional: Present: Alert, Cooperative, No distress Respiratory: Present: no respiratory distress Extremity: Present: other - RUE--> bandages c/d/i, SILT, dorsal pedis pulse 2+, 5/5 PF/DF, mild ttp over greater trochanter of right hip Assessment/Plan Plan Narrative: - 82 y/o female post-op day #1 s/p right hemiarthroplasty - WBAT with assistance PRN - PT/OT progress as tolerated - PO pain medication PRN - PO diet as tolerated - DVT: lovenox, SCDs in bed, geovany hose - Hgb 10.3 continue to monitor - bandages maintain intact - chronic medical conditions managed per medicine team - Problems/Diagnosis (1) Fracture of right hip Problem: Acute Qualifiers: Encounter type: initial encounter Fracture type: closed Qualified Code(s) : S72.001A - Fracture of unspecified part of neck of right femur, initial encounter for closed fracture
[2018-03-09] MEDS: SENNOSIDES/DOCUSATE SODIUM 1 TAB TABLET PO SCH (21:31)
[2018-03-10] MEDS: HYDROcodone/ACETAMINOPHEN 1 EACH TABLET PO PRN ×3 (00:23→21:32)
[2018-03-10 05:55] LABS: Anion Gap 10.7 mmol/L (6.8-13.8); BUN/Creatinine Ratio 11.8 (9.0-21.6); Calcium * 8.4 mg/dL (7.9-10.9); Carbon Dioxide 29.6 mmol/L (24-32.6); Estimated Creat Clear 38.6; Potassium 4.3 mmol/L (3.4-4.6)
[2018-03-10 05:56] LABS: Hematocrit 29.9 % (37.0-47.0); Mean Cell Volume 91.2 fl (78-100); Mean Corpuscular Hemoglobin 30.5 pg (27-31); Mean Corpuscular Hgb Conc 33.4 g/dl (32-36); Mean Platelet Volume 11.1 fl (8-12.5); Platelet Count 177 K/mm3 (150-450); Red Blood Count 3.28 M/mm3 (4.2-5.4); Red Cell Distribution Width 12.9 % (11.5-14.0); White Blood Count 10.6 K/mm3 (4.0-10.5)
[2018-03-10] MEDS: INSULIN LISPRO 100 UNITS/ML VIAL SC SCH ×4 (07:20→20:09)
[2018-03-10] MEDS: CARBIDOPA/LEVODOPA 25/100 1 TAB TABLET PO SCH ×3 (07:21→20:11)
[2018-03-10] MEDS: LEVOTHYROXINE SODIUM 100 MCG TABLET PO SCH (07:21)
--- NOTE | 2018-03-10 07:31 | PN ---
Subjective - Date and Time Seen Date: 03/10/18 Time: 07:27 Subjective Narrative: Patient report no acute events. She notes no significant pain except with WB. She has been up to for transfers with PT/OT. Objective - Vitals Vitals: Last Vital Signs Temp 37.1 C 03/10/18 07:14 Pulse 92 03/10/18 07:14 Resp 20 03/10/18 07:14 BP 115/46 03/10/18 07:14 Pulse Ox 95 03/10/18 07:14 - Abnormal Lab Findings Abnormal Lab Findings: Abnormal Lab Results 03/10/18 03/10/18 Range/Units 05:44 05:44 WBC 10.6 H (4.0-10.5) K/mm3 RBC 3.28 L (4.2-5.4) M/mm3 Hgb 10.0 L (12.5-16.0) gm/dL Hct 29.9 L (37.0-47.0) % Random Glucose 188 H (70-110) mg/dL - Exam Constitutional: Present: Alert, Cooperative, No distress Respiratory: Present: no respiratory distress Extremity: Present: other - RLE--> bandages c/d/i, SILT, dorsal pedis 2+, PF/DF 4+/5, ttp diffusely of hip region Cauti Physician Documentation - Urinary Catheter Management Urethral (Wilson) Date of Removal: 03/09/18 Time of Removal: 11:30 Assessment/Plan Plan Narrative: - 82 y/o female post-op day #2 s/p right hemiarthroplasty - WBAT with assistance PRN, anterior precautions - PT/OT progress as tolerated - PO pain medication PRN - PO diet as tolerated - DVT: lovenox, SCDs in bed, geovany hose - Hgb 10.0 stable - bandages maintain intact - chronic medical conditions managed per medicine team - Problems/Diagnosis (1) Fracture of right hip Problem: Acute Qualifiers: Encounter type: initial encounter Fracture type: closed Qualified Code(s) : S72.001A - Fracture of unspecified part of neck of right femur, initial encounter for closed fracture
[2018-03-10] MEDS: ATENOLOL 25 MG TABLET PO SCH (09:04)
[2018-03-10] MEDS: HALOPERIDOL 1 MG TABLET PO SCH (09:05)
[2018-03-10] MEDS: LISINOPRIL 10 MG TABLET PO SCH (09:05)
[2018-03-10] MEDS: ENOXAPARIN SODIUM 30 MG/0.3 ML SYRG SC SCH (09:05)
[2018-03-10] MEDS: FAMOTIDINE 20 MG TABLET PO SCH ×2 (09:05→20:10)
[2018-03-10] MEDS: SENNOSIDES/DOCUSATE SODIUM 1 TAB TABLET PO SCH (20:11)
--- NOTE | 2018-03-10 23:23 | PN ---
Subjective - Date and Time Seen Date: 03/09/18 Time: 12:30 Subjective Narrative: Reports getting stronger. Denies abdominal pain, fever, or chills. Objective - Vitals Vitals: Last Vital Signs Selected Entries 03/09/18 11:02 Temperature 37.1 C Pulse Rate 90 Respiratory Rate 22 H Blood Pressure 109/49 O2 Sat by Pulse Oximetry 97 Oxygen Flow Rate 2 - Abnormal Lab Findings Abnormal Lab Findings: Abnormal Lab Results - Exam Constitutional: Present: Alert, Cooperative, No distress. Absent: Oriented x3 Respiratory: Present: lungs clear, normal breath sounds Cardiovascular/Chest: Present: regular rate, rhythm Abdomen: Present: soft, nontender, hypoactive Eye contact: Present: cooperative, good eye contact, normal speech Cauti Physician Documentation - Urinary Catheter Management Urethral (Wilson) Date of Removal: 03/09/18 Time of Removal: 11:30 Assessment/Plan Plan Narrative: Medically she appears at her baseline. She has dementia and this slows the progress she is able to make with therapy. She is making some improvement and once doing well enough will be discharged to [facility] for additional strengthening. - Problems/Diagnosis (1) Fracture of right hip Problem: Acute Qualifiers: Encounter type: initial encounter Fracture type: closed Qualified Code(s) : S72.001A - Fracture of unspecified part of neck of right femur, initial encounter for closed fracture (2) Parkinson disease Problem: Chronic
--- NOTE | 2018-03-10 23:31 | PN ---
Subjective - Date and Time Seen Date: 03/10/18 Time: 12:50 Subjective Narrative: Reports hip pain with motion. Denies abdominal pain, but if she eats she feels nauseated. No fever or chills. Having difficulty urinating on her own today. Notes indicate she is not doing well with therapy. Objective - Vitals Vitals: Last Vital Signs Temp 36.9 C 03/10/18 19:41 Pulse 84 03/10/18 19:41 Resp 18 03/10/18 19:41 BP 166/79 H 03/10/18 19:41 Pulse Ox 94 03/10/18 19:41 - Abnormal Lab Findings Abnormal Lab Findings: Abnormal Lab Results 03/10/18 03/10/18 Range/Units 05:44 05:44 WBC 10.6 H (4.0-10.5) K/mm3 RBC 3.28 L (4.2-5.4) M/mm3 Hgb 10.0 L (12.5-16.0) gm/dL Hct 29.9 L (37.0-47.0) % Random Glucose 188 H (70-110) mg/dL - Exam Constitutional: Present: Alert - oriented x 1 Respiratory: Present: lungs clear, normal breath sounds Cardiovascular/Chest: Present: regular rate, rhythm, no murmur Abdomen: Present: Normal bowel sounds, soft, nontender Skin Exam: Present: normal color, warm/dry, no cyanosis Cauti Physician Documentation - Urinary Catheter Management Urethral (Wilson) Date of Removal: 03/09/18 Time of Removal: 11:30 Assessment/Plan Plan Narrative: Slowly progressing, needs to show more with PT before able to discharge. Hope to discharge in the next 1-2 days. Having some urinary retention and had to be straight cath this AM. Will continue to monitor she has chronic urinary incontinence. No reported abdominal pain today. She feels like she will have a bowel movement soon. I believe once this happens her nausea might improve. Otherwise no major medical concerns today. - Problems/Diagnosis (1) Fracture of right hip Problem: Acute Qualifiers: Encounter type: initial encounter Fracture type: closed Qualified Code(s) : S72.001A - Fracture of unspecified part of neck of right femur, initial encounter for closed fracture (2) Parkinson disease Problem: Chronic
[2018-03-11] MEDS: HYDROcodone/ACETAMINOPHEN 1 EACH TABLET PO PRN (05:39)
[2018-03-11] MEDS: INSULIN LISPRO 100 UNITS/ML VIAL SC SCH ×2 (06:26→11:55)
[2018-03-11] MEDS: CARBIDOPA/LEVODOPA 25/100 1 TAB TABLET PO SCH (06:27)
[2018-03-11] MEDS: LEVOTHYROXINE SODIUM 100 MCG TABLET PO SCH (06:27)
[2018-03-11] MEDS: LISINOPRIL 10 MG TABLET PO SCH (08:15)
[2018-03-11] MEDS: ENOXAPARIN SODIUM 30 MG/0.3 ML SYRG SC SCH (08:15)
[2018-03-11] MEDS: ATENOLOL 25 MG TABLET PO SCH (08:15)
[2018-03-11] MEDS: HALOPERIDOL 1 MG TABLET PO SCH (08:15)
[2018-03-11] MEDS: FAMOTIDINE 20 MG TABLET PO SCH (08:16)
--- NOTE | 2018-03-11 09:03 | PN ---
Progess Note - Interim Date: 03/11/18 Time: 08:10 Narrative: 03/11/18 08:49 Patient today appears much more comfortable, able to stand for dressing changes. Exam revealed minimal drainage through Prineo dressing, was redressed with dermabond (monitor for changes), SILT, posterior tib pulse 2+, 5/5 PF/DF. She will be discharged to the [facility]. She can f/u in 2 weeks in orthopedic office. Her pain is well controlled with PO pain medication. She is tolerating PO diet. - 82 y/o female post-op day #3 s/p right hemiarthroplasty - WBAT with assistance PRN, anterior precautions - PT/OT progress as tolerated - PO pain medication PRN, [place] 5/325mg take 1-2 tabs every 4-6 hours PO PRN #60 , for pain - PO diet as tolerated - DVT: lovenox for 6 weeks, then transition to 325mg aspirin daily for 6 weeks - bandages changed today, no significant drainage, Prineo in place, monitor, dress with gauze if any drainage occurs - dispo: to the [facility], f/u at 2 weeks post-op in orthropedic outpatient clinic with Dr. Burnham 03/11/18 09:03
--- NOTE | 2018-03-11 13:00 | DS ---
(1) Fracture of right hip Problem: Acute Qualifiers: Encounter type: initial encounter Fracture type: closed Qualified Code(s) : S72.001A - Fracture of unspecified part of neck of right femur, initial encounter for closed fracture (2) Parkinson disease Problem: Chronic Description of Stay: Roxie is an 82 yo female with chronic dementia, admitted for right hip fracture. She was admitted and medically cleared for surgery. Orthopedics were consulted and Dr. Burnham repaired the right hip fracture on 03/08/18. Therapies were consulted and she gradually improved strength. She is doing well and ready for discharge the [facility], where she resides. She will continue with therapies there. She is currently not urinating on her own or having bowel movements, but I believe this to be secondary to narcotics. We will continue her on oral pain medications. She may be bladder scanned as needed and if volume is >500ml she may be straight catheterized if she is having urinary retention symptoms. Procedures Performed: see notes below List Procedures: Right hemiarthroplasty 03/08/18 Results and Findings: Lab Pending Results 03/07/18 03/07/18 03/07/18 09:25 09:25 09:25 WBC 8.2 RBC 4.32 Hgb 13.1 Hct 40.4 MCV 93.5 MCH 30.3 MCHC 32.4 RDW 12.7 Plt Count 259 MPV 10.4 Immature Gran % (Auto) 0.90 H Immature Gran # (Auto) 0.07 H Neutrophils % 72.2 Lymphocytes % 19.4 L Monocytes % 6.1 Eosinophils % 1.0 Basophils % 0.4 Nucleated RBC % 0.0 Neutrophils # 5.9 Lymphocytes # 1.58 Monocytes # 0.5 Eosinophils # 0.1 Absolute Basophils 0.0 PT 9.9 INR (Anticoag Therapy) 0.99 Sodium 142 Plasma Sodium 144 H Potassium 4.4 Chloride 103 Carbon Dioxide 29.0 Anion Gap 14.4 H BUN 18 Creatinine 1.08 Est GFR (Non-Af Amer) 52 L BUN/Creatinine Ratio 16.7 Random Glucose 195 H Calcium 9.1 Calcium Adj for Albumin 9.2 Total Bilirubin 0.3 AST 15 ALT 12 L Alkaline Phosphatase 54 Total Protein 6.9 Albumin 3.5 Urine Color Urine Appearance Urine pH Ur Specific [place] Urine Protein Urine Glucose (UA) Urine Ketones Urine Blood Urine Nitrate Urine Bilirubin Urine Urobilinogen Ur Leukocyte Esterase Urine RBC Urine WBC Ur Epithelial Cells Urine Bacteria Urine Culture Comments 03/07/18 03/09/18 03/09/18 Unknown 05:00 05:00 WBC 10.2 D RBC 3.42 L Hgb 10.3 L Hct 31.5 L MCV 92.1 MCH 30.1 MCHC 32.7 RDW 13.0 Plt Count 177 MPV 10.7 Immature Gran % (Auto) Immature Gran # (Auto) Neutrophils % Lymphocytes % Monocytes % Eosinophils % Basophils % Nucleated RBC % Neutrophils # Lymphocytes # Monocytes # Eosinophils # Absolute Basophils PT INR (Anticoag Therapy) Sodium 135 Plasma Sodium 136 Potassium 4.2 Chloride 101 Carbon Dioxide 28.8 Anion Gap 9.4 BUN 9 Creatinine 0.85 Est GFR (Non-Af Amer) 68 D BUN/Creatinine Ratio 10.6 Random Glucose 175 H Calcium 8.5 Calcium Adj for Albumin Total Bilirubin AST ALT Alkaline Phosphatase Total Protein Albumin Urine Color Yellow Urine Appearance Clear Urine pH 6.0 Ur Specific [place] 1.010 Urine Protein Negative Urine Glucose (UA) Negative Urine Ketones Negative Urine Blood Negative Urine Nitrate Negative Urine Bilirubin Negative Urine Urobilinogen Normal Ur Leukocyte Esterase Negative Urine RBC None seen Urine WBC None seen Ur Epithelial Cells None seen Urine Bacteria None seen Urine Culture Comments No culture indicated 03/10/18 03/10/18 05:44 05:44 WBC 10.6 H RBC 3.28 L Hgb 10.0 L Hct 29.9 L MCV 91.2 MCH 30.5 MCHC 33.4 RDW 12.9 Plt Count 177 MPV 11.1 Immature Gran % (Auto) Immature Gran # (Auto) Neutrophils % Lymphocytes % Monocytes % Eosinophils % Basophils % Nucleated RBC % Neutrophils # Lymphocytes # Monocytes # Eosinophils # Absolute Basophils PT INR (Anticoag Therapy) Sodium 134 Plasma Sodium 135 Potassium 4.3 Chloride 98 Carbon Dioxide 29.6 Anion Gap 10.7 BUN 11 Creatinine 0.93 Est GFR (Non-Af Amer) 61 BUN/Creatinine Ratio 11.8 Random Glucose 188 H Calcium 8.4 Calcium Adj for Albumin Total Bilirubin AST ALT Alkaline Phosphatase Total Protein Albumin Urine Color Urine Appearance Urine pH Ur Specific [place] Urine Protein Urine Glucose (UA) Urine Ketones Urine Blood Urine Nitrate Urine Bilirubin Urine Urobilinogen Ur Leukocyte Esterase Urine RBC Urine WBC Ur Epithelial Cells Urine Bacteria Urine Culture Comments Discharge Location: [facility] Disposition: SNF Condition: Stable Level of Care: SNF Discharge Activity: Activity as tolerated, Weight bearing, Other - Weight bearing as tolerated with assistance prn, anterior precautions Discharge Diet: General/regular food Usp Therapy: Physicial Therapy, Occupation Therapy Referrals: Rito Burnham MD [Staff Physician] - Two Weeks Problem Oriented Discharge Instructions to Patient/Family: Hip Fracture Additional Patient Instructions (free text): Follow up with Orthopedic Dr Burnham on FridayMarch 23 at 8:30 am. Lovenox for 6 weeks, then transition to 325mg aspirin daily for 6 weeks Leave current dressing in place, dress with gauze if any drainage occurs. May bladder scan as needed. May also straight catheterize urine if >500ml of urine and having bladder discomfort. Prescriptions (Any new or edited meds): Enoxaparin Sodium [Lovenox] 30 mg SC Q24H #42 disp.syrin HYDROcodone/ACETAMINOPHEN [[place] 5-325] 1 each PO Q6H PRN #60 tablet PRN Reason: Moderate Pain (Pain Scale 4-6) Sennosides/Docusate Sodium [Senokot-S] 2 tab PO HS #60 tab Complete Home Medications List: Complete Home Medication List: Carbidopa/Levodopa 25/100 [Sinemet 25/100] 1 tab PO TID 01/24/15 Clopidogrel Bisulfate [Plavix] 75 mg PO DAILY 01/24/15 Levothyroxine Sodium [Synthroid] 100 mcg PO DAILY 01/24/15 Ranolazine [Ranexa] 500 mg PO BID 01/24/15 Atenolol [Tenormin] 25 mg PO DAILY 01/25/15 Cyanocobalamin [Vitamin B-12] 1,000 mcg PO DAILY 01/25/15 Ferrous Sulfate 325 mg PO TID #90 tablet 01/25/15 Calcium Carbonate/Vitamin D3 [Calcium 600-Vit D3 200 Tablet] 1 each PO DAILY 12/09 Cholecalciferol [Vitamin D] 1,000 unit PO DAILY 08/28/16 Haloperidol [Haldol] 1 mg PO DAILY 08/28/16 Lisinopril [Zestril] 10 mg PO DAILY 08/28/16 Simvastatin [Zocor] 20 mg PO HS 08/28/16 Acetaminophen 650 mg PO Q6H PRN 03/07/18 Meclizine HCl [Antivert] 25 mg PO QID PRN 03/07/18 metFORMIN HCL [Metformin HCl] 500 mg PO BIDWM 03/07/18 Enoxaparin Sodium [Lovenox] 30 mg SC Q24H #42 disp.syrin 03/11/18 HYDROcodone/ACETAMINOPHEN [[place] 5-325] 1 each PO Q6H PRN #60 tablet 03/11/18 Sennosides/Docusate Sodium [Senokot-S] 2 tab PO HS #60 tab 03/11/18
[2018-03-11 13:37] VITALS: BP 141/92
== END 2018-03-11 14:14 | DRG 470 ==
LOC: ER 08:55 → MS 11:21
PROVIDERS: ADMIT Family Medicine; ATTEND Family Medicine
DX: Z79.82 Long term (current) use of aspirin; W01.0XXA Fall on same level from slipping, tripping and stumbling without subsequent striking against object, initial encounter; I25.10 Atherosclerotic heart disease of native coronary artery without angina pectoris; Y92.122 Bedroom in nursing home as the place of occurrence of the external cause; Z87.891 Personal history of nicotine dependence; E11.9 Type 2 diabetes mellitus without complications; S72.011A Unspecified intracapsular fracture of right femur, initial encounter for closed fracture; F02.80 Dementia in other diseases classified elsewhere, unspecified severity, without behavioral disturbance, psychotic disturbance, mood disturbance, and anxiety; G20 Parkinson's disease; I10 Essential (primary) hypertension
CPT/HCPCS: 36415; 71010; 71045; 73502; 80048; 80053; 81001; 85025; 85027; 85610; 87081; 93005; 96374; 96375; 97110; 97162; 97165; 97530; 97535; 99285; J2405

== ENCOUNTER 2018-03-12 17:58 | Observation (INO) ==
--- NOTE | 2018-03-12 18:17 | ERNOTE ---
<Hortencia Arnold - Last Filed: 03/12/18 21:37> GI Bleeding/Rectal Pain ER Date of Service: 03/12/18 Presenting Symptoms: other - Positive hemocult Time Seen by Provider: 03/12/18 18:16 Source: family, RN notes reviewed, past records Exam Limitations: clinical condition Immunizations: IMMUNIZATION HX Immunizations Up to Date Yes History of Influenza Vaccine Yes Hx Pneumococcal Vaccination Yes Allergies/Adverse Reactions: Allergies No Known Allergies Allergy (Verified 03/12/18 18:04) Home Medications: HOME MEDICATIONS Carbidopa/Levodopa 25/100 [Sinemet 25/100] 1 tab PO TID 01/24/15 [Last Taken 04/10] Clopidogrel Bisulfate [Plavix] 75 mg PO DAILY 01/24/15 [Last Taken 09/01/16] Levothyroxine Sodium [Synthroid] 100 mcg PO DAILY 01/24/15 [Last Taken 09/01/16] Ranolazine [Ranexa] 500 mg PO BID 01/24/15 [Last Taken 09/01/16] Atenolol [Tenormin] 25 mg PO DAILY 01/25/15 [Last Taken 09/01/16] Cyanocobalamin [Vitamin B-12] 1,000 mcg PO DAILY 01/25/15 [Last Taken 09/01/16] Ferrous Sulfate 325 mg PO TID #90 tablet 01/25/15 [Last Taken 09/01/16] Calcium Carbonate/Vitamin D3 [Calcium 600-Vit D3 200 Tablet] 1 each PO DAILY 12/09 [Last Taken 09/01/16] Cholecalciferol [Vitamin D] 1,000 unit PO DAILY 08/28/16 [Last Taken 09/01/16] Haloperidol [Haldol] 1 mg PO DAILY 08/28/16 [Last Taken 09/01/16] Lisinopril [Zestril] 10 mg PO DAILY 08/28/16 [Last Taken 09/02/16 07:00] Simvastatin [Zocor] 20 mg PO HS 08/28/16 [Last Taken 09/01/16] Acetaminophen 650 mg PO Q6H PRN 03/07/18 [Last Taken Unknown] Meclizine HCl [Antivert] 25 mg PO QID PRN 03/07/18 [Last Taken Unknown] metFORMIN HCL [Metformin HCl] 500 mg PO BIDWM 03/07/18 [Last Taken Unknown] Enoxaparin Sodium [Lovenox] 30 mg SC Q24H #42 disp.syrin 03/11/18 [Last Taken Unknown] HYDROcodone/ACETAMINOPHEN [[place] 5-325] 1 each PO Q6H PRN #60 tablet 03/11/18 [ Last Taken Unknown] Sennosides/Docusate Sodium [Senokot-S] 2 tab PO HS #60 tab 03/11/18 [Last Taken Unknown] Narrative: 82 year old female brought to the ED by ambulance after having a hemocult positive stool today and being more confused than normal. She underwent a right hip pinning on 03/08. She was discharged back to the [facility] yesterday. She had not had a bowel movement for several days, but had a large stool today that appeared dark. She has a history of GI bleeding in the past and is currently on Lovenox. Date (Duration): 03/12/18 Associated Symptoms: Reports: black stools, tarry stools Prior Treament: Reports: recently seen, recently hospitalized, similar symptoms before Review of Systems - Narrative Narrative: Unable to obtain ROS d/t confusion Medical History (Last Reviewed 03/07/18 @ 20:17 by Lai Gan MD) Anemia Arthropathy Dementia Diabetes mellitus type 2 in nonobese HTN (hypertension) Hyperlipidemia Hypothyroidism Parkinson disease Social History: Preferred Language Tajik Smoking Status Never smoker Abuse History No History of abuse Psych History No pertinent hx Alcohol Use occasionally Drug Use none Physical Exam - Physical Exam General Appearance: Present: wd/wn, no apparent distress, sleeping/easy to arouse Head Exam: Present: normal inspection Eye Exam: Normal inspection: bilateral, PERRL: bilateral Neck: Present: normal inspection, supple Respiratory: Present: no respiratory distress, normal breath sounds, lungs clear Cardiovascular/Chest: Present: regular rate, rhythm, no murmur, normal peripheral pulses Peripheral Pulses: N=norm/S=strong/W=weak/B=bound/A=absent: Dorsalis-pedis (R): Normal, Dorsalis-pedis (L): Normal Gastrointestinal/Abdominal: Present: soft, tenderness - patient grimaces with palpation, abnormal bowel sounds - hypoactive, distended Extremity Exam: Present: normal inspection, no edema Neurological Exam: Absent: alert, oriented, normal mood/affect Skin Exam: Present: normal color, warm/dry, other - Right hip incision well approximated, no redness, small amount serous drainage ED Progress - Results and Orders Patient's Lab Results:: I have reviewed the patient's lab results. - Vital Signs Patient's Vital Signs:: I have reviewed the patient's vital signs. Vital Signs: Vital Signs 03/12/18 17:58 03/12/18 18:06 03/12/18 18:14 Temperature 36.8 C Pulse Rate 82 89 80 Respiratory Rate 18 21 H Blood Pressure 186/82 H 170/77 H O2 Sat by Pulse Oximetry 97 99 - X-Ray X-Ray #1 X-Ray: abdomen Interpretation: Interp. by me X-ray Comments: large amount of retained stool with abnormal bowel gas pattern - Progress/Reassessment Chief Complaint: GI Bleed Progress:: Unchanged Progress Note-Subjective: 03/12/18 21:32 Patient drinking contrast for CT abdomen/pelvis. Zofran given IV for nausea. She was given Narcan 1 mg IVP and did seem more alert and appropriate for a brief time. Rocephin given IV for UTI. Patient has had 1 small tarry stool while in ED. - Transfer of Care Physician Sign Out: Hortencia Anrold Receiving Physician: Don Parra Pending Results: CT/MRI results Expected Disposition: Discharge Departure Clinical Impression: Urinary tract infection after period of immobility, Fecal impaction of rectum, Colitis Gastrointestinal bleeding Qualifiers: GI bleed type/associated pathology: melena Qualified Code(s): K92.1 - Melena Altered mental status Qualifiers: Altered mental status type: disorientation Qualified Code(s): R41.0 - Disorientation, unspecified - Departure Disposition: Still a patient Condition: Stable Referrals: Aj Vann DO [Primary Care Provider] - <Don Parra - Last Filed: 03/13/18 00:42> GI Bleeding/Rectal Pain ER Immunizations: IMMUNIZATION HX Immunizations Up to Date Yes History of Influenza Vaccine Yes Hx Pneumococcal Vaccination Yes Medical History (Last Reviewed 03/07/18 @ 20:17 by Lai Gan MD) Anemia Arthropathy Dementia Diabetes mellitus type 2 in nonobese HTN (hypertension) Hyperlipidemia Hypothyroidism Parkinson disease Social History: Preferred Language Tajik Smoking Status Never smoker Abuse History No History of abuse Psych History No pertinent hx Alcohol Use occasionally Drug Use none ED Progress - Vital Signs Vital Signs: Vital Signs 03/12/18 17:58 03/12/18 18:06 03/12/18 18:14 Temperature 36.8 C Pulse Rate 82 89 80 Respiratory Rate 18 21 H Blood Pressure 186/82 H 170/77 H O2 Sat by Pulse Oximetry 97 99 03/12/18 18:42 03/12/18 19:00 03/12/18 19:42 Temperature Pulse Rate 81 81 82 Respiratory Rate 18 20 18 Blood Pressure 167/88 H 168/74 H 162/78 H O2 Sat by Pulse Oximetry 99 99 97 03/12/18 20:30 03/12/18 21:05 03/12/18 21:35 Temperature Pulse Rate 81 83 81 Respiratory Rate 18 18 18 Blood Pressure 165/73 H 161/76 H 164/75 H O2 Sat by Pulse Oximetry 99 97 98 03/12/18 23:10 03/12/18 23:40 03/13/18 00:05 Temperature 36.5 C 36.8 C Pulse Rate 89 84 87 Respiratory Rate 18 18 18 Blood Pressure 164/72 H 157/76 H 166/73 H O2 Sat by Pulse Oximetry 97 98 96 - CT/Ultrasound CT/Ultrasound Narrative: Large amount of impacted stool in the rectosigmoid with circumferential wall thickening compatible with stercoral colitis. No SBO. distended urinary bladder. - Progress/Reassessment Progress Note-Subjective: 03/13/18 00:[address] George and he felt the patient could be admitted to medicine as she would not be surgical at this time. He suggested nothing more than a suppository tonight to encourage release of the impacted stool, and would not increase her risk for perforation. [facility] with [facility].
[2018-03-12 18:18] LABS: Urine Bilirubin Negative (NEGATIVE); Urine Blood 25 /ul (NEGATIVE); Urine Ketone Negative (NEGATIVE); Urine Nitrite Negative (NEGATIVE); Urine Protein Negative (NEGATIVE); Urine Urobilinogen Normal (NORMAL); Urine pH 6.5 pH (5.0-7.0)
[2018-03-12 18:31] LABS: Urine Appearance Cloudy (CLEAR); Urine Color Yellow
[2018-03-12 18:32] LABS: Urine Bacteria 3+; Urine RBC 0-5 /hpf (0-5); Urine WBC 25-50 /hpf (0-5)
[2018-03-12 19:21] LABS: Hematocrit 32.2 % (37.0-47.0); Hemoglobin 10.4 gm/dL (12.5-16.0); Mean Cell Volume 91.7 fl (78-100); Mean Corpuscular Hemoglobin 29.6 pg (27-31); Mean Corpuscular Hgb Conc 32.3 g/dl (32-36); Platelet Count 277 K/mm3 (150-450); Red Blood Count 3.51 M/mm3 (4.2-5.4); White Blood Count 11.8 K/mm3 (4.0-10.5)
[2018-03-12 19:23] LABS: Total Cells Counted 100
[2018-03-12 19:31] LABS: Prothrombin Time (Patient) 9.8 Seconds (9.0-11.0)
[2018-03-12 19:35] LABS: Albumin * 2.3 gm/dl (3.4-5.0); Anion Gap 12.6 mmol/L (6.8-13.8); BUN/Creatinine Ratio 15.7 (9.0-21.6); Bilirubin, Total 0.5 mg/dL (0.0-1.1); Ca. Corrected For Albumin 10.1 mg/dL (8.4-10.2); Calcium * 9.1 mg/dL (7.9-10.9); Carbon Dioxide 28.2 mmol/L (24-32.6); INR 0.98 INR (0.90-1.10); Potassium 3.8 mmol/L (3.4-4.6); Total Protein 6.6 gm/dL (6.2-8.2)
[2018-03-12 19:40] LABS: Atypical (Reactive) Lymph 2 % (0-2); Band 1 % (0-2.0); Basophil 2 % (0-1); Eosinophil 2 % (0-3); Lymphocyte 6 % (20-51); Monocyte 6 % (0-9); Neutrophil 81 % (42-75); Neutrophil # 9.6 K/mm3 (1.3-6.0); Platelet Estimate Normal (NORMAL)
[2018-03-12] MEDS ORDERED: NALOXONE HCL 1 MG/1 ML SYRG IV ONE (19:40)
[2018-03-12 19:41] LABS: Dohle Bodies Trace
[2018-03-12] MEDS ORDERED: NALOXONE HCL 1 MG/1 ML SYRG ONE (19:43)
[2018-03-12] MEDS ORDERED: DIATRIZOATE MEGLUMINE, SODIUM 30 ML BTL PO ONE (20:40)
[2018-03-12] MEDS ORDERED: DIATRIZOATE MEGLUMINE, SODIUM 30 ML BTL ONE (20:41)
[2018-03-12] MEDS ORDERED: ONDANSETRON HCL/PF 2 MG/ML VIAL IV ONE (21:10)
[2018-03-12] MEDS ORDERED: ONDANSETRON HCL/PF 2 MG/ML VIAL ONE (21:12)
[2018-03-13] MEDS ORDERED: NORMAL SALINE 1,000 ML IV PRN (05:40)
[2018-03-13] MEDS ORDERED: MAGNESIUM CITRATE 300 ML BTL PO ONE (05:50)
--- NOTE | 2018-03-13 05:53 | HP ---
Chief Complaint - Chief Complaint Date of Service: 03/13/18 Time of Service: 05:11 Chief Complaint: abdominal pain History of Present Illness: Roxie Bronson is an 82 year old female with a PMH significant for: DM, HLD, HTN , dementia and Parkinson's disease, who was brought to the ED by ambulance after having a hemocult positive stool today and being more confused than normal. She underwent a right hip pinning here on 03/08 and was actually just discharged on the to the [facility]. Per EMR record she has not had a bowel movement for several days, but had a large stool today that appeared dark. She has a history of GI bleeding in the past and is currently on Lovenox. Laboratory findings in the ER showed slight leukocytosis, her UA was positive. Her hemaglobin has actually increased since discharge. She had and abdominal CT which showed large amount of fecal impaction with a fecal ball in the rectum vault as well as circumferential wall thinkening of the retrosigmoid compatible with stercoral colitis. Medical History (Last Reviewed 03/13/18 @ 02:10 by Raquel Crystal RN) Anemia Arthropathy Dementia Diabetes mellitus type 2 in nonobese HTN (hypertension) Hyperlipidemia Hypothyroidism Parkinson disease Surgical History: Surgical History (Last Updated 03/13/18 @ 02:09 by Raquel Crystal RN) Hx of appendectomy S/P right hip fracture Family History: Family History (Last Updated 03/13/18 @ 02:11 by Raquel Crystal RN) Mother Lung cancer Father Prostate cancer Brother Diabetes Sister Dementia Social History: Patient Lives/Resources [employer] Utilized Occupation retired Preferred Language Icelandic Do you have any synagogue or Yes: methodist cultural preference? Smoking Status Former smoker Have you smoked in the past 12 No months Abuse History No History of abuse Psych History No pertinent hx Alcohol Use occasionally Drug Use none Review Of Systems (GEN) - Review of Systems Generalized/Overall Review: Present: Weakness, Fatigue EENTM: Present: No Symptoms Reported Respiratory: Present: No Symptoms Reported Cardiac: Present: No Symptoms Reported Abdominal: Present: Abdominal Pain, Constipation, Melena Genitourinary: Present: Hesitancy, Incontinent, Retention Musculoskeletal: Present: No Symptoms Reported Neurological: Present: Weakness, Other - examination limited by pt underlying dementia. She is oriented to self and place. Cooperative with examination, but does not open eyes and quickly drifts back to sleep. Skin: Present: No Symptoms Reported Endocrine: Present: No Symptoms Reported Immunizations: IMMUNIZATION HX Immunizations Up to Date Yes History of Influenza Vaccine Yes Hx Pneumococcal Vaccination Yes Allergies/Adverse Reactions: Allergies Allergy/AdvReac Type Severity Reaction Status Date / Time No Known Allergies Allergy Verified 03/12/18 18:04 Home Medications: HOME MEDICATIONS Carbidopa/Levodopa 25/100 [Sinemet 25/100] 1 tab PO TID 01/24/15 [Last Taken 04/10] Clopidogrel Bisulfate [Plavix] 75 mg PO DAILY 01/24/15 [Last Taken 09/01/16] Levothyroxine Sodium [Synthroid] 100 mcg PO DAILY 01/24/15 [Last Taken 09/01/16] Ranolazine [Ranexa] 500 mg PO BID 01/24/15 [Last Taken 09/01/16] Atenolol [Tenormin] 25 mg PO DAILY 01/25/15 [Last Taken 09/01/16] Cyanocobalamin [Vitamin B-12] 1,000 mcg PO DAILY 01/25/15 [Last Taken 09/01/16] Ferrous Sulfate 325 mg PO TID #90 tablet 01/25/15 [Last Taken 09/01/16] Calcium Carbonate/Vitamin D3 [Calcium 600-Vit D3 200 Tablet] 1 each PO DAILY 12/09 [Last Taken 09/01/16] Cholecalciferol [Vitamin D] 1,000 unit PO DAILY 08/28/16 [Last Taken 09/01/16] Haloperidol [Haldol] 1 mg PO DAILY 08/28/16 [Last Taken 09/01/16] Lisinopril [Zestril] 10 mg PO DAILY 08/28/16 [Last Taken 09/02/16 07:00] Simvastatin [Zocor] 20 mg PO HS 08/28/16 [Last Taken 09/01/16] Acetaminophen 650 mg PO Q6H PRN 03/07/18 [Last Taken Unknown] Meclizine HCl [Antivert] 25 mg PO QID PRN 03/07/18 [Last Taken Unknown] metFORMIN HCL [Metformin HCl] 500 mg PO BIDWM 03/07/18 [Last Taken Unknown] Enoxaparin Sodium [Lovenox] 30 mg SC Q24H #42 disp.syrin 03/11/18 [Last Taken Unknown] HYDROcodone/ACETAMINOPHEN [[place] 5-325] 1 each PO Q6H PRN #60 tablet 03/11/18 [ Last Taken Unknown] Sennosides/Docusate Sodium [Senna-Docusate Sodium Tablet] 2 tab PO HS 03/13/18 [ Last Taken Unknown] Exam - Exam Vital Signs: Vital Signs - Last Taken Temp 36.9 C 03/13/18 02:13 Pulse 88 03/13/18 02:13 Resp 18 03/13/18 02:13 BP 144/68 03/13/18 02:13 Pulse Ox 94 03/13/18 02:13 Constitutional: Present: Alert, Cooperative, Acute distress, Lethargic, Elderly ENT Exam: Present: normal ENT inspection, hearing grossly normal Eye Exam: bilateral eye: normal inspection Neck: Present: non-tender, supple Back Exam: Present: normal inspection, no CVA tenderness, no vertebral tenderness Breasts: Present: Exam deferred Respiratory: Present: chest non-tender, lungs clear, normal breath sounds, no respiratory distress, no accessory muscle use, decreased breath sounds Cardiovascular/Chest: Present: normal peripheral pulses, regular rate, rhythm, no chest tenderness, no edema, no gallop, no JVD, no murmur Peripheral Pulses: dorsalis-pedis (R): 2+, dorsalis-pedis (L): 2+, radial (R): 2 +, radial (L): 2+ Abdomen: Present: Normal bowel sounds, soft, nondistended, no hepatospenomegaly , no masses, obese, tender, guarding /Rectal: Present: Exam deferred Extremity: Present: normal range of motion, non-tender, normal inspection, no pedal edema, no calf tenderness, normal capillary refill Skin Exam: Present: normal color, warm/dry, no cyanosis Lymphatic: Present: no adenopathy Neurologic: Present: normal cerebellar test, no motor/sensory deficits, alert, normal mood/affect, oriented x 3 Appearance: Present: appropriate appearance, appropriate insight, neat, no memory impairment Eye contact: Present: cooperative, good eye contact, normal speech Thoughts: Present: normal thought pattern, no apparent hallucination Diagnostic Studies: Abnormal Lab Results 03/12/18 03/12/18 03/12/18 Range/Units 18:13 19:16 19:16 WBC 11.8 H (4.0-10.5) K/mm3 RBC 3.51 L (4.2-5.4) M/mm3 Hgb 10.4 L (12.5-16.0) gm/dL Hct 32.2 L (37.0-47.0) % Neutrophils % (Manual) 81 H (42-75) % Lymphocytes % (Manual) 6 L (20-51) % Basophils % (Manual) 2 H (0-1) % Neutrophils # (Manual) 9.6 H (1.3-6.0) K/mm3 Lymphocytes # (Manual) 0.7 L (1.5-3.5) k/mm3 Basophils # (Manual) 0.2 H (0.0-0.1) k/mm3 Est GFR (Non-Af Amer) 55 L (60-130) mL/min Random Glucose 144 H (70-110) mg/dL Albumin 2.3 L (3.4-5.0) gm/dl Urine Blood 25 H (NEGATIVE) /ul Ur Leukocyte Esterase 75 H (NEGATIVE) /ul Urine WBC 25-50 H (0-5) /hpf Urine Bacteria 3+ H (NONE) Laboratory Results WBC 11.8 K/mm3 (4.0-10.5) H 03/12/18 19:16 RBC 3.51 M/mm3 (4.2-5.4) L 18 19:16 Hgb 10.4 gm/dL (12.5-16.0) L 03/12/18 19:16 Hct 32.2 % (37.0-47.0) L 03/12/18 19:16 MCV 91.7 fl (78-100) 03/12/18 19:16 MCH 29.6 pg (27-31) 03/12/18 19:16 MCHC 32.3 g/dl (32-36) 03/12/18 19:16 RDW 13.0 % (11.5-14.0) 18 19:16 Plt Count 277 K/mm3 (150-450) 18 19:16 MPV 10.0 fl (8-12.5) 03/12/18 19:16 Neutrophils % (Manual) 81 % (42-75) H 03/12/18 19:16 Band Neuts % (Manual) 1 % (0-2.0) 03/12/18 19:16 Lymphocytes % (Manual) 6 % (20-51) L 03/12/18 19:16 Monocytes % (Manual) 6 % (0-9) 03/12/18 19:16 Eosinophils % (Manual) 2 % (0-3) 03/12/18 19:16 Basophils % (Manual) 2 % (0-1) H 03/12/18 19:16 Neutrophils # (Manual) 9.6 K/mm3 (1.3-6.0) H 03/12/18 19:16 Lymphocytes # (Manual) 0.7 k/mm3 (1.5-3.5) L 03/12/18 19:16 Monocytes # (Manual) 0.7 k/mm3 (0.0-1.0) 03/12/18 19:16 Eosinophils # (Manual) 0.2 k/mm3 (0.0-0.7) 03/12/18 19:16 Basophils # (Manual) 0.2 k/mm3 (0.0-0.1) H 03/12/18 19:16 Atypic/Reactive Lymphs 2 % (0-2) 03/12/18 19:16 Toxic Vacuolation Trace 03/12/18 19:16 Dohle Bodies Trace 03/12/18 19:16 Platelet Estimate Normal (NORMAL) 03/12/18 19:16 PT 9.8 Seconds (9.0-11.0) 03/12/18 19:16 INR (Anticoag Therapy) 0.98 INR (0.90-1.10) 03/12/18 19:16 Sodium 134 mmol/L (132-142) 03/12/18 19:16 Plasma Sodium 135 mmol/L (130-142) 03/12/18 19:16 Potassium 3.8 mmol/L (3.4-4.6) 03/12/18 19:16 Chloride 97 mmol/L (97-106) 03/12/18 19:16 Carbon Dioxide 28.2 mmol/L (24-32.6) 03/12/18 19:16 Anion Gap 12.6 mmol/L (6.8-13.8) 03/12/18 19:16 BUN 16 mg/dL (3-23) 03/12/18 19:16 Creatinine 1.02 mg/dL (0.4-1.4) 03/12/18 19:16 Est GFR (Non-Af Amer) 55 mL/min (60-130) L 03/12/18 19:16 BUN/Creatinine Ratio 15.7 (9.0-21.6) 03/12/18 19:16 Random Glucose 144 mg/dL (70-110) H 03/12/18 19:16 Calcium 9.1 mg/dL (7.9-10.9) 03/12/18 19:16 Calcium Adj for Albumin 10.1 mg/dL (8.4-10.2) 03/12/18 19:16 Total Bilirubin 0.5 mg/dL (0.0-1.1) 03/12/18 19:16 AST 46 U/L (0-48) 03/12/18 19:16 ALT 41 U/L (19-67) 03/12/18 19:16 Alkaline Phosphatase 76 U/L (50-170) 03/12/18 19:16 Total Protein 6.6 gm/dL (6.2-8.2) 03/12/18 19:16 Albumin 2.3 gm/dl (3.4-5.0) L 03/12/18 19:16 Urine Color Yellow 03/12/18 18:13 Urine Appearance Cloudy (CLEAR) 03/12/18 18:13 Urine pH 6.5 pH (5.0-7.0) 03/12/18 18:13 Ur Specific [place] 1.010 SP.GR. (1.005-1.010) 03/12/18 18:13 Urine Protein Negative mg/dL (NEGATIVE) 03/12/18 18:13 Urine Glucose (UA) Negative mg/dL (NEGATIVE) 03/12/18 18:13 Urine Ketones Negative mg/dL (NEGATIVE) 03/12/18 18:13 Urine Blood 25 /ul (NEGATIVE) H 03/12/18 18:13 Urine Nitrate Negative (NEGATIVE) 03/12/18 18:13 Urine Bilirubin Negative mg/dl (NEGATIVE) 03/12/18 18:13 Urine Urobilinogen Normal EU/dl (NORMAL) 03/12/18 18:13 Ur Leukocyte Esterase 75 /ul (NEGATIVE) H 03/12/18 18:13 Urine RBC 0-5 /hpf (0-5) 03/12/18 18:13 Urine WBC 25-50 /hpf (0-5) H 03/12/18 18:13 Ur Epithelial Cells 0-5 /hpf (0-5) 03/12/18 18:13 Urine Bacteria 3+ (NONE) H 03/12/18 18:13 Urine Culture Comments Culture to follow 03/12/18 18:13 Assessment/Plan - Assessment/Plan (1) Altered mental status Assessment: Pt with underlying Parkinson's and dementia, her acute confusion is likely multifactoral including colitis and UTI. Problem: Acute Qualifiers: Altered mental status type: disorientation Qualified Code(s): R41.0 - Disorientation, unspecified (2) Urinary tract infection after period of immobility Assessment: Gandhi placed for urinary retention, + UA-culture pending. Will place on empirically on Ceftriaxone until can narrow. - Insert gandhi - Ceftriaxone 1gm Q24H Problem: Acute (3) Fecal impaction of rectum Assessment: Pt elderly, confused, poor PO intake, and limited mobility given recent hip surgery. Will attempt conservative medical management at this point, GI spoken to per ER MD, no need to consult at this point. If however, pt worsens or does not improved will consult them at that time. - Dulcolax suppository now and daily - Mag Citrate x1 - Clear Liquid Diet - Encourage OOB as much as possible - Encourage PO fluid - Limit narcotics - IV hydration Problem: Acute (4) Colitis Assessment: Likely given large amount of fecal impaction. Problem: Acute (5) Hypertension Assessment: Stable - Continue antihypertensive medications Problem: Chronic Qualifiers: Hypertension type: unspecified Qualified Code(s): I10 - Essential (primary ) hypertension (6) CAD (coronary artery disease) Assessment: Stable, will hold Lovenox at this time given +hemocult stool - Continue Plavix - Hold Lovenox - Monitor h/h Problem: Chronic Qualifiers: Coronary Disease-Associated Artery/Lesion type: unspecified vessel or lesion type (7) Parkinson disease Assessment: Stable - Continue Sinemet Problem: Chronic (8) HLD (hyperlipidemia) Problem: Acute (9) Dementia Problem: Chronic (10) Gastrointestinal bleeding Assessment: Secondary to colitis from large fecal impaction, hemoglobin stable at this time and pt remains hemodynamically stable. - Hold Lovenox - Monitor h/h Problem: Acute Qualifiers: GI bleed type/associated pathology: melena Qualified Code(s): K92.1 - Melena (11) Diabetes Assessment: Chronic - Continue Metformin - Accu checks ac/hs Problem: Chronic Qualifiers: Diabetes mellitus type: other specified (including NIKOLE)
[2018-03-13] MEDS ORDERED: MAGNESIUM CITRATE 300 ML BTL ONE (06:57)
[2018-03-13] MEDS ORDERED: LEVOTHYROXINE SODIUM 75 MCG TABLET PO SCH (07:00)
[2018-03-13] MEDS ORDERED: LEVOTHYROXINE SODIUM 100 MCG TABLET PO SCH (07:00)
[2018-03-13] MEDS: ACETAMINOPHEN 325 MG TABLET PO PRN ×2 (07:18→14:07)
[2018-03-13] MEDS ORDERED: ATENOLOL 25 MG TABLET PO SCH (09:00)
[2018-03-13] MEDS ORDERED: metFORMIN HCL 500 MG TABLET PO SCH (09:00)
[2018-03-13] MEDS ORDERED: CLOPIDOGREL BISULFATE 75 MG TABLET PO SCH (09:00)
[2018-03-13] MEDS ORDERED: HALOPERIDOL 1 MG TABLET PO SCH (09:00)
[2018-03-13] MEDS ORDERED: CYANOCOBALAMIN 1,000 MCG TABLET PO SCH (09:00)
[2018-03-13] MEDS ORDERED: LISINOPRIL 10 MG TABLET PO SCH (09:00)
[2018-03-13] MEDS: FERROUS SULFATE 325 MG TABLET PO SCH ×2 (09:56→12:10)
[2018-03-13] MEDS: CARBIDOPA/LEVODOPA 25/100 1 TAB TABLET PO SCH ×2 (09:57→12:10)
--- NOTE | 2018-03-13 12:31 | DS ---
(1) Hematuria Problem: Acute Qualifiers: Hematuria type: asymptomatic microscopic Qualified Code(s): R31.21 - Asymptomatic microscopic hematuria (2) Urinary tract infection after period of immobility Problem: Acute (3) Fecal impaction of rectum Problem: Acute (4) Colitis Problem: Acute Description of Stay: Roxie Bronson is an 82-year-old female resident of the [facility]. Last week she had a fractured hip and a subsequent hip pinning. She did well postoperatively and was sent back to the [facility]. Then she started having abdominal pain and she hadn't had a bowel movement in many days. She did have a BM and it was Hemoccult positive. Nurse called me and I agreed to have her hospital to be examined. She has a history of colitis as well. She was given mag site rate to drink and has had a massive bowel movement here today. She is feeling much better and her abdominal pain is gone. She will be returned to the [facility] residential today. Procedures Performed: none Results and Findings: Pending Mircobiology Results 03/12/18 Unknown Urine,Voided Urine Culture - Preliminary Ruling Out Pathogen Lab Pending Results 03/12/18 18:13: Urine Color Yellow, Urine Appearance Cloudy, Urine pH 6.5, Ur Specific [place] 1.010, Urine Protein Negative, Urine Glucose (UA) Negative, Urine Ketones Negative, Urine Blood 25 H, Urine Nitrate Negative, Urine Bilirubin Negative, Urine Urobilinogen Normal, Ur Leukocyte Esterase 75 H, Urine RBC 0-5, Urine WBC 25-50 H, Ur Epithelial Cells 0-5, Urine Bacteria 3+ H, Urine Culture Comments Culture to follow 03/12/18 19:16: WBC 11.8 H, RBC 3.51 L, Hgb 10.4 L, Hct 32.2 L, MCV 91.7, MCH 29.6, MCHC 32.3, RDW 13.0, Plt Count 277, MPV 10.0, Neutrophils % (Manual) 81 H , Band Neuts % (Manual) 1, Lymphocytes % (Manual) 6 L, Monocytes % (Manual) 6, Eosinophils % (Manual) 2, Basophils % (Manual) 2 H, Neutrophils # (Manual) 9.6 H , Lymphocytes # (Manual) 0.7 L, Monocytes # (Manual) 0.7, Eosinophils # (Manual ) 0.2, Basophils # (Manual) 0.2 H, Atypic/Reactive Lymphs 2, Toxic Vacuolation Trace, Dohle Bodies Trace, Platelet Estimate Normal 03/12/18 19:16: PT 9.8, INR (Anticoag Therapy) 0.98 03/12/18 19:16: Sodium 134, Plasma Sodium 135, Potassium 3.8, Chloride 97, Carbon Dioxide 28.2, Anion Gap 12.6, BUN 16, Creatinine 1.02, Est GFR (Non-Af Amer) 55 L, BUN/Creatinine Ratio 15.7, Random Glucose 144 H, Calcium 9.1, Calcium Adj for Albumin 10.1, Total Bilirubin 0.5, AST 46, ALT 41, Alkaline Phosphatase 76, Total Protein 6.6, Albumin 2.3 L Discharge Location: [facility] Disposition: SNF Condition: Stable Face to Face Encounter completed per [facility] Guidelines: No Level of Care: SNF Discharge Activity: Activity as tolerated, Weight bearing Discharge Diet: General/regular food Intermediate Therapy: Physicial Therapy, Occupation Therapy Referrals: Felton Weir DO [Primary Care Provider] - Consultation Done:: Igor De Los Santos Problem Oriented Discharge Instructions to Patient/Family: Urinary Tract Infection, Adult, [id number], Fecal Impaction Additional Patient Instructions (free text): Hold Metformin until creatinine level results tomorrow. Complete Home Medications List: Complete Home Medication List: Carbidopa/Levodopa 25/100 [Sinemet 25/100] 1 tab PO TID 01/24/15 Clopidogrel Bisulfate [Plavix] 75 mg PO DAILY 01/24/15 Levothyroxine Sodium [Synthroid] 100 mcg PO DAILY 01/24/15 Ranolazine [Ranexa] 500 mg PO BID 01/24/15 Atenolol [Tenormin] 25 mg PO DAILY 01/25/15 Cyanocobalamin [Vitamin B-12] 1,000 mcg PO DAILY 01/25/15 Ferrous Sulfate 325 mg PO TID #90 tablet 01/25/15 Calcium Carbonate/Vitamin D3 [Calcium 600-Vit D3 200 Tablet] 1 each PO DAILY 12/09 Cholecalciferol [Vitamin D] 1,000 unit PO DAILY 08/28/16 Haloperidol [Haldol] 1 mg PO DAILY 08/28/16 Lisinopril [Zestril] 10 mg PO DAILY 08/28/16 Simvastatin [Zocor] 20 mg PO HS 08/28/16 Acetaminophen 650 mg PO Q6H PRN 03/07/18 Meclizine HCl [Antivert] 25 mg PO QID PRN 03/07/18 metFORMIN HCL [Metformin HCl] 500 mg PO BIDWM 03/07/18 Enoxaparin Sodium [Lovenox] 30 mg SC Q24H #42 disp.syrin 03/11/18 HYDROcodone/ACETAMINOPHEN [[place] 5-325] 1 each PO Q6H PRN #60 tablet 03/11/18 Sennosides/Docusate Sodium [Senna-Docusate Sodium Tablet] 2 tab PO HS 03/13/18 Amb Orders for Discharge: Renal Function Panel Time Frame: 1 Day, Location: None Selected
--- NOTE | 2018-03-13 13:20 | CONS ---
- Reason for consultation (1) Hematuria, gross Date of Service: 03/13/18 HPI - General Source: family, RN/MD, RN notes reviewed Exam Limitations: clinical condition - History of Present Illness Initial Comments: 82 Female who I am consulted on for gross hematuria. She has a hx of hip fracture and poor performance status. Surgery 2 weeks ago. Went into retention afterwards. Apparently was getting CIC although not for sure from the family. Patient is somewhat delirious and not oriented or able to participate in history. She was readmitted yesterday for confusion and somnolence. She has improved today. Found to be in retention again and Gandhi placed this morning with 500 cc out. She had a large blood clot. A CT scan was done yesterday and I reviewed the report and images. No signs of kidney masses or stones. 7 cm R renal cyst that appears simple. No prior urological hx. Catheter has been draining okay. Allergies/Adverse Reactions: Allergies No Known Allergies Allergy (Verified 03/12/18 18:04) Home Medications: Home Medications Medication Instructions Recorded Last Taken Carbidopa/Levodopa 25/100 [Sinemet 1 tab PO TID 01/24/15 09/01/16 25/100] Clopidogrel Bisulfate [Plavix] 75 mg PO DAILY 01/24/15 09/01/16 Levothyroxine Sodium [Synthroid] 100 mcg PO DAILY 01/24/15 09/01/16 Ranolazine [Ranexa] 500 mg PO BID 01/24/15 09/01/16 Atenolol [Tenormin] 25 mg PO DAILY 01/25/15 09/01/16 Cyanocobalamin [Vitamin B-12] 1,000 mcg PO DAILY 01/25/15 09/01/16 Ferrous Sulfate 325 mg PO TID #90 tablet 01/25/15 09/01/16 Calcium Carbonate/Vitamin D3 1 each PO DAILY 08/28/16 09/01/16 [Calcium 600-Vit D3 200 Tablet] Cholecalciferol [Vitamin D] 1,000 unit PO DAILY 08/28/16 09/01/16 Haloperidol [Haldol] 1 mg PO DAILY 08/28/16 09/01/16 Lisinopril [Zestril] 10 mg PO DAILY 08/28/16 09/02/16 07:00 Simvastatin [Zocor] 20 mg PO HS 08/28/16 09/01/16 Acetaminophen 650 mg PO Q6H PRN 03/07/18 Unknown Meclizine HCl [Antivert] 25 mg PO QID PRN 03/07/18 Unknown metFORMIN HCL [Metformin HCl] 500 mg PO BIDWM 03/07/18 Unknown Enoxaparin Sodium [Lovenox] 30 mg SC Q24H #42 disp.syrin 03/11/18 Unknown HYDROcodone/ACETAMINOPHEN [[place] 1 each PO Q6H PRN #60 tablet 03/11/18 Unknown 5-325] Sennosides/Docusate Sodium 2 tab PO HS 03/13/18 Unknown [Senna-Docusate Sodium Tablet] Procedures Replacement of Left Lens with Synthetic Substitute, Percutaneous Approach (09/16) Replacement of Right Hip Joint, Femoral Surface with Synthetic Substitute, Cemented, Open Approach (03/07/18) Replacement of Right Lens with Synthetic Substitute, Percutaneous Approach (05/11) Medications - Medications Current Medications: Current Medications Acetaminophen (Tylenol) 650 mg PO Q6H PRN PRN Reason: Pain Stop: 04/12/18 05:51 Last Admin: 03/13/18 07:18 Dose: 650 mg Atenolol (Tenormin) 25 mg PO DAILY GIOVANNI Stop: 04/12/18 09:01 Last Admin: 03/13/18 09:56 Dose: 25 mg Carbidopa/Levodopa (Sinemet 25/100) 1 tab PO TID GIOVANNI Stop: 04/12/18 09:01 Last Admin: 03/13/18 12:10 Dose: 1 tab Clopidogrel Bisulfate (Plavix) 75 mg PO DAILY GIOVANNI Stop: 04/12/18 09:01 Last Admin: 03/13/18 09:56 Dose: 75 mg Cyanocobalamin (Vitamin B-12) 1,000 mcg PO DAILY GIOVANNI Stop: 04/12/18 09:01 Last Admin: 03/13/18 09:56 Dose: 1,000 mcg Ferrous Sulfate (Ferrous Sulfate) 325 mg PO TID GIOVANNI Stop: 04/12/18 09:01 Last Admin: 03/13/18 12:10 Dose: 325 mg Haloperidol (Haldol) 1 mg PO DAILY GIOVANNI Stop: 04/12/18 09:01 Last Admin: 03/13/18 09:57 Dose: 1 mg Sodium Chloride (Sodium Chloride 0.9%) 1,000 mls @ 80 mls/hr IV .[id number] PRN PRN Reason: HYDRATION Stop: 04/12/18 05:41 Last Admin: 03/13/18 09:58 Dose: 80 mls/hr Levothyroxine Sodium (Synthroid) 100 mcg PO QDAC [facility] Stop: 04/12/18 07:01 Last Admin: 03/13/18 07:18 Dose: 100 mcg Lisinopril (Zestril) 10 mg PO DAILY [facility] Stop: 04/12/18 09:01 Last Admin: 03/13/18 09:56 Dose: 10 mg Ranolazine (Ranexa) 500 mg PO BID [facility] Stop: 04/12/18 09:01 Last Admin: 03/13/18 09:56 Dose: 500 mg Review of Systems - Review of Systems Generalized/Overall Review: Present: Weakness EENTM: Present: No Symptoms Reported Respiratory: Present: No Symptoms Reported Cardiac: Present: No Symptoms Reported Abdominal: Present: Constipation Genitourinary: Present: Hematuria Musculoskeletal: Present: No Symptoms Reported Neurological: Present: Weakness Skin: Present: No Symptoms Reported Endocrine: Present: No Symptoms Reported Physical Examination - Exam Vital Signs: Vital Signs - Last Taken Temp 98.4 F 03/13/18 11:00 Pulse 75 03/13/18 11:00 Resp 14 03/13/18 11:00 BP 132/63 03/13/18 11:00 Pulse Ox 97 03/13/18 11:00 O2 Oxygen Delivery Method Room Air Constitutional: Present: No distress, Somnolent, Thin and frail ENT Exam: Present: normal ENT inspection Neck: Present: full range of motion Respiratory: Present: chest non-tender, lungs clear Cardiovascular/Chest: Present: normal peripheral pulses Abdomen: Present: soft, nontender, distended /Rectal: Present: Other - Gandhi in place. Light red-tinged urine but draining fine. Extremity: Present: normal range of motion Skin Exam: Present: normal color, warm/dry Appearance: Present: disheveled, impaired insight - Results and Findings: Narrative: Gross hematuria. CT scan is normal. Likely related to catheter trauma. Will need recheck in the future Urinary retention. Keep gandhi. Try voiding trial in 1-2 weeks. If can't void at that time go back to [facility] as needed. Lab/Microbiology results last 24 hrs: Abnormal/Pending Laboratory Last 24 HRS 03/12/18 03/12/18 03/12/18 19:16 19:16 18:13 WBC 11.8 H RBC 3.51 L Hgb 10.4 L Hct 32.2 L Neutrophils % (Manual) 81 H Lymphocytes % (Manual) 6 L Basophils % (Manual) 2 H Neutrophils # (Manual) 9.6 H Lymphocytes # (Manual) 0.7 L Basophils # (Manual) 0.2 H Est GFR (Non-Af Amer) 55 L Random Glucose 144 H Albumin 2.3 L Urine Blood 25 H Ur Leukocyte Esterase 75 H Urine WBC 25-50 H Urine Bacteria 3+ H Culture 03/12/18 Unknown Urine Culture - Preliminary Urine,Voided Ruling Out Pathogen - Assessments/Findings (1) Hematuria, gross Problem: Acute
[2018-03-13 13:54] VITALS: BP 146/68
[2018-03-13] MEDS ORDERED: SENNOSIDES/DOCUSATE SODIUM 1 TAB TABLET PO SCH (21:00)
[2018-03-13] MEDS ORDERED: SIMVASTATIN 20 MG TABLET PO SCH (21:00)
== END 2018-03-13 14:20 ==
LOC: ER 17:58 → MS 17:58
PROVIDERS: ADMIT Nurse Practitioner Gerontology; ATTEND Family Medicine
DX: N99.89 Other postprocedural complications and disorders of genitourinary system; N39.0 Urinary tract infection, site not specified; I10 Essential (primary) hypertension; I25.10 Atherosclerotic heart disease of native coronary artery without angina pectoris; R33.9 Retention of urine, unspecified; G20 Parkinson's disease; K56.41 Fecal impaction; F02.80 Dementia in other diseases classified elsewhere, unspecified severity, without behavioral disturbance, psychotic disturbance, mood disturbance, and anxiety; E11.9 Type 2 diabetes mellitus without complications; E78.5 Hyperlipidemia, unspecified; Z79.84 Long term (current) use of oral hypoglycemic drugs; Z68.29 Body mass index [BMI] 29.0-29.9, adult; R31.0 Gross hematuria; K52.9 Noninfective gastroenteritis and colitis, unspecified; B96.20 Unspecified Escherichia coli [E. coli] as the cause of diseases classified elsewhere
CPT/HCPCS: 36415; 74019; 74020; 74177; 80053; 81001; 85007; 85025; 85610; 87077; 87081; 87086; 87186; 96365; 96375; 99285; G0378; J2405